=== PATIENT | male | born 1940 | race African-American/Black ===

== ENCOUNTER 2016-11-30 22:55 | Inpatient (IN) | payer OTHER ==
[~2016-11-30] VITALS: Ht 180.3 cm; Wt 90.7 kg
[~2016-11-30 22:55] MED LIST: ACETAMINOPHEN500 MG PO; AMBIEN5 MG PO; ASPIR-LOW81 MG PO; COLACE100 MG ORAL; COZAAR100 MG PO; EPLERENONE25 MG PO; HUMULIN 70100 UNIT/1 SUBQ; HYDRALAZINE HCL25 M1 ORAL; IMDUR60 MG ORAL; LASIX40 MG PO; LIPITOR80 MG PO; METOPROLOL TAR100 MG ORAL; NOVOLIN 70100 UNIT/1 SUBQ; PLAVIX75 MG PO; TENORMIN25 MG PO; TESSALON PERLE100 M2 ORAL; VICODIN 5-5001 EACH PO
[2016-11-30 23:15] VITALS: BP 116/93
[2016-11-30] MEDS ORDERED: Naloxone 1mg/ml 2ml IVP ONE (23:15)
--- NOTE | 2016-11-30 23:43 | Emergency Room Report ---
History of Present Illness General Chief Complaint: Altered Level of Consciousness Source: Medical Record Present Illness HPI 75 YO M sent from SNF for "more altered than usual." Paperwork/EMR: - dementia, CKD Stage 3, urinary retention, left foot gangrene/osteo s/p amputation, left upper DVT, CHF, cardiomyopathy - Patient unable to AC because of bleeding left foot, anemia CXR done today was normal Abx ray showed normal bowel gas pattern, non distended loops of bowel Recent UA showed 1+ LE, few bacteria BNP was 2939, serum Cr 1.93 Patient is full code Allergies: Coded Allergies: CODEINE (Verified Allergy, Unknown, 10/25/12) SPIRONOLACTONE (Verified Allergy, Unknown, 11/30/16) Patient History Past Medical History: see triage record, old chart reviewed Past Surgical History: unable to obtain Pertinent Family History: unable to obtain Social History: Reports: smoking Reviewed Nursing Documentation: PMH: Agreed, PSxH: Agreed Nursing Documentation-PMH Past Medical History: No History, Except For Hx Cardiac Problems: Yes - HIGH CHOLESTEROL Hx Hypertension: Yes Hx Diabetes: Yes Hx Cancer: No Hx Gastrointestinal Problems: No Hx Neurological Problems: No Hx Cerebrovascular Accident: No Hx Headaches: Yes Review of Systems All Other Systems: limited - AMS Physical Exam Vital Signs Date Time Temp Pulse Resp B/P Pulse Ox O2 Delivery O2 Flow Rate FiO2 11/30/16 22:59 90.5 82 18 112/68 99 Room Air Sp02 EP Interpretation: reviewed, abnormal General Appearance: normal inspection, well appearing, no apparent distress, lethargic Head: normocephalic, atraumatic Eyes: bilateral eye other - pinpoint pupils bilaterall ENT: normal ENT inspection, hearing grossly normal, normal pharynx, no angioedema, TMs + canals normal, uvula midline Neck: normal inspection, full range of motion, supple, thyroid normal, no meningismus, no bony tend Respiratory: normal inspection, lungs clear, normal breath sounds, no respiratory distress, no retraction, no accessory muscle use, no wheezing, other - mid sternal scar Cardiovascular #1: regular rate, rhythm, no edema Gastrointestinal: normal inspection, normal bowel sounds, non tender, soft, no guarding, no hernia Genitourinary: no CVA tenderness Musculoskeletal: normal inspection, back normal, normal range of motion, Trisha' s Sign negative, other - S/p amputation of toes of left foot; wrapped with dressing. No appreciable warmth or erythema. Neurologic: normal inspection, alert, oriented x3, responsive, pollution control chemist III-XII nml as tested, motor strength/tone normal, speech normal Psychiatric: normal inspection, judgement/insight normal, mood/affect normal Skin: normal inspection, normal color, no rash Procedures Critical Care Time Critical Care Time CC time 35 minutes Care for a 75YOM with known dementia with AMS. Normally A&Ox1. VS significant for rectal temp 90F however patient not cold to touch. 90F using multiple rectal thermometers in ED DDx includes CVA, ACS, infection, metabolic abnormality, toxic ingestion, polysubstance abuse Patient is disoriented, no obvious sign of trauma. Comprehensive physical exam completed, atraumatic. Unreliable history from patient. Labs include toxicology and chem panel, CT head, EKG 12 lead and constant cardiac rhythm strip monitoring, IV established. Airway adequately maintained by patient upon arrival. EKG reveals atrial paced, ventricular sensed rhythm Physician spent 35 minutes of direct critical care time monitoring patient's respiratory, cardiac and neurological status, reassessment, review of imaging, labs and discussion with attending hospitalist. Does not include procedures Medical Decision Making Medicare Attestation I Shell Leigh MD hereby attest that the medical record entry for date of service, 09/11/16 accurately reflects signatures/notations that I made in my capacity as MD when I treated/diagnosed the above listed Medicare beneficiary. I attest that this information is true, accurate and complete to the best of my knowledge. I understand that any falsification, omission, or concealment of material fact may subject me to administrative, civil, or criminal liability. This patient warrants hospital admission for extreme of age and has a condition that cannot be treated as outpatient. Diagnostic Impression: Primary Impression: Altered level of consciousness Additional Impressions: Hypothermia Qualified Codes: T68.XXXA - Hypothermia, initial encounter Lactic acid acidosis ER Course 75 YOM with acute AMS. VS notable for hypothermia. Otherwise stable. Airway patent. Elevated lactate. H&H stable. No leuks. Elevated serumCr, known CKD CT brain no acute abnormality Spoke to Dr Rainey at [facility] who didnt feel patient comfortable for transfer States patient on Vanc/Cefepime/Flagyl, which were continued IV here Blood Cx pending Patient has PICC line I placed right EJ for labs, access Endorsed to Dr Gallardo at 148am for tele amdission EKG Diagnostic Results Rate: other - Atrial sensed ventricular paced rhythm, PVCs ST Segments: no acute changes ASA given to the pt in ED: No Rhythm Strip Diag. Results EP Interpretation: yes Rate: 82 Rhythm: no PVC's, other - PVCs Chest X-Ray Diagnostic Results EP Interpretation: Yes Findings: no consolidation, no effusion, no pneumothorax, no acute cardiopulmonary disease, other - pacemarker Number of Views: 1 Last Vital Signs Date Time Temp Pulse Resp B/P Pulse Ox O2 Delivery O2 Flow Rate FiO2 11/30/16 22:59 90.5 82 18 112/68 99 Room Air Status: improved Disposition: ADMITTED INPATIENT Condition: Critical SHELL LEIGH M.D. Nov 30, 2016 23:43
[2016-12-01] VITALS (60 sets, daily range): BP systolic 60–113; BP diastolic 17–89
[2016-12-01 01:07] LABS: MEAN CORPUSCULAR HEMOGLOBIN 31.1 PG (27.0-31.0); MEAN CORPUSCULAR HGB CONC 29.9 G/DL (32.0-36.0); MEAN CORPUSCULAR VOLUME 104 FL (80-99); MEAN PLATELET VOLUME 12.3 FL (6.5-10.1); PLATELET COUNT 118 K/UL (150-450); RED BLOOD COUNT 3.56 M/UL (4.70-6.10)
[2016-12-01 01:22] LABS: TROPONIN I < 0.30 ng/mL (<=0.30)
[2016-12-01 01:26] LABS: ALANINE AMINOTRANSFERASE 7 U/L (3-41); ALBUMIN/GLOBULIN RATIO 0.5 (1.0-2.7); ANION GAP 18 (5-15); ASPARTATE AMINO TRANSFERASE 24 U/L (5-40); CALCIUM 9.2 mg/dL (8.6-10.2); CARBON DIOXIDE 28 mEQ/L (20-30); CHLORIDE 97 mEQ/L (98-107); CREATININE 2.8 mg/dL (0.7-1.2); HEMOLYSIS 28; SODIUM 143 mEQ/L (135-145); TOTAL PROTEIN 7.1 g/dL (6.6-8.7)
[2016-12-01] MEDS ORDERED: Zosyn 3.375gm inj ONE (01:28)
[2016-12-01 01:29] LABS: REFLEX LACTIC ACID YES OR NO YES
[2016-12-01] MEDS ORDERED: Piperacillin/Tazobactam 3.375 GM in NS 110 ML IVPB ONE (01:30)
[2016-12-01] MEDS ORDERED: Cefepime HCl 2 GM in D5W 110 ML IVPB ONE (01:30)
[2016-12-01] MEDS ORDERED: metroNIDAZOLE 500mg 100 ML IVPB ONE (01:30)
[2016-12-01] MEDS ORDERED: Vancomycin 1 GM in D5W 275 ML IVPB ONE (01:30)
[2016-12-01] MEDS ORDERED: Cefepime 2gm ONE (01:31)
[2016-12-01 01:35] LABS: CKMB 10.7 ng/mL (< 6.7)
[2016-12-01] MEDS ORDERED: LR 1000ml 1,000 ML IV STA (01:40)
[2016-12-01 02:26] LABS: APPEARANCE,URINE SLIGHTLY CLOUDY; KETONES,URINE 1+ (NEGATIVE); PROTEIN,URINE 3+ (NEGATIVE)
[2016-12-01 02:27] LABS: LEUKOCYTE ESTERASE ,URINE 2+ (NEGATIVE); NITRITE,URINE NEGATIVE (NEGATIVE); RBC,URINE 15-20 /HPF (0 - 0); SQUAMOUS EPITHELIAL CELL,UR MANY /LPF (NONE/OCC); UROBILINOGEN,URINE NORMAL MG/DL (0.0-1.0)
[2016-12-01 02:28] LABS: BACTERIA,URINE FEW /HPF; YEAST,URINE MANY /HPF
[2016-12-01] MEDS ORDERED: Vancomycin 1gm inj IVPB ONE (03:56)
[2016-12-01] MEDS ORDERED: Levophed 4mg/4mL Inj IV ONE (09:39)
[2016-12-01] MEDS ORDERED: NEPHROVITE1 TAB ORAL (10:57)
[2016-12-01] MEDS ORDERED: NORCO 5-325 TA1 EAC1 ORAL (10:57)
[2016-12-01] MEDS ORDERED: FERROUS SULFAT325 MG ORAL (10:57)
[2016-12-01] MEDS ORDERED: PANTOPRAZOLE SO40 MG ORAL (10:57)
[2016-12-01] MEDS ORDERED: POTASSIUM 25 M25 ME1 PO (10:57)
[2016-12-01] MEDS ORDERED: VITAMIN B-121000 MC1 PO (10:57)
--- NOTE | 2016-12-01 10:57 | Diagnostic Imaging Report ---
Indication: Chest Technique: One view of the chest Comparison: 11/26/2013 Findings: Interim placement of left chest 3-lead pacemaker AICD. Interim cardiac valve replacement surgery. The heart is mildly enlarged. The lungs and pleural spaces are clear. There is a right arm PICC now present Impression: No acute process graph mild cardiomegaly Other findings as noted
[2016-12-01] MEDS ORDERED: TYLENOL650 MG/20. ORAL (11:01)
[2016-12-01] MEDS ORDERED: TAMSULOSIN HCL0.4 MG ORAL (11:01)
[2016-12-01] MEDS ORDERED: ZYPREXA2.5 MG ORAL (11:01)
[2016-12-01] MEDS ORDERED: TORSEMIDE100 MG PO (11:01)
[2016-12-01] MEDS ORDERED: ALLOPURINOL300 M1 ORAL (11:01)
--- NOTE | 2016-12-01 11:06 | Diagnostic Imaging Report ---
Indication: Altered mental status Technique: spiral acquisitions obtained through the brain. Angled axial and coronal 5 x 5 mm slices were reconstructed. No IV contrast utilized. Radiation dose was minimized using automated exposure control Total dose length product 1552 mGycm. CTDIvol(s) 70 mGy Comparison: none FINDINGS: No acute hemorrhage or edema. No mass effect or midline shift. There is age-related enlargement of the ventricles and extra axial CSF spaces. There is periventricular deep white matter ischemic change. Normal tavera-white differentiation. Visualized orbits are unremarkable. Visualized sinuses are unremarkable. Intact calvarium. There is an old right parietal deep white matter infarct. IMPRESSION: Chronic and age-related changes. 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 The CT scanner at [facility] is accredited by the [employer] and the scans are performed using protocols designed to limit radiation exposure to as low as reasonably achievable to attain images of sufficient resolution adequate for diagnostic evaluation
[2016-12-01] MEDS: D5NS 1,000 ML IV SCH ×2 (13:30→23:37)
--- NOTE | 2016-12-01 14:20 | Infectious Diseases Prog Note ---
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 3) pmh noted, arf 4) allergies - codeine and spironolactone P) 1) vancomycin and meropenem 2) check cultures, labs and f/u chest x-ray 3) podiatry evaluation of left stump wound for possible debridement 4) d/w Dr. Medellin 5) thank you Subjective Allergies: Coded Allergies: CODEINE (Verified Allergy, Unknown, 10/25/12) SPIRONOLACTONE (Verified Allergy, Unknown, 11/30/16) Objective Vital Signs Last 24 Hour Vital Signs Date Time Temp Pulse Resp B/P Pulse Ox O2 Delivery O2 Flow Rate FiO2 12/01/16 13:31 100 Nasal Cannula 2.0 28 12/01/16 13:30 Nasal Cannula 2.0 28 12/01/16 12:30 97 13 100/40 98 Room Air 12/01/16 12:15 96 13 99/34 98 Room Air 12/01/16 12:00 98 12/01/16 12:00 98.6 99 12 99/38 98 Room Air 12/01/16 11:45 99 13 100/44 98 Room Air 12/01/16 11:30 99 13 100/44 98 Room Air 12/01/16 11:15 99 14 94/47 98 Room Air 12/01/16 11:00 101 15 100/37 98 Room Air 12/01/16 10:50 98.4 100 16 105/38 99 Room Air 12/01/16 10:42 98.4 100 16 105/38 100 Room Air 12/01/16 10:30 98 12 94/43 99 Room Air 12/01/16 09:44 82/40 12/01/16 09:30 94 13 82/40 99 Room Air 12/01/16 08:28 96.3 82 12 94/32 100 Room Air 12/01/16 07:14 93.8 89 15 105/77 100 Room Air 12/01/16 05:15 91.4 75 17 95/34 98 Room Air 12/01/16 03:15 90.1 72 15 111/39 100 Room Air 12/01/16 01:15 91.1 77 22 107/52 100 Room Air 11/30/16 23:15 90.5 81 17 116/93 100 Room Air 11/30/16 22:59 90.5 82 18 112/68 99 Room Air Height (Feet): 5 Height (Inches): 11.00 Weight (Pounds): 200 Laboratory Tests Test 12/01/16 00:50 12/01/16 01:58 12/01/16 03:36 White Blood Count 6.0 K/UL (4.8-10.8) Red Blood Count 3.56 M/UL (4.70-6.10) L Hemoglobin 11.0 G/DL (14.2-18.0) L Hematocrit 36.9 % (42.0-52.0) L Mean Corpuscular Volume 104 FL (80-99) H Mean Corpuscular Hemoglobin 31.1 PG (27.0-31.0) H Mean Corpuscular Hemoglobin Concent 29.9 G/DL (32.0-36.0) L Red Cell Distribution Width 20.0 % (11.6-14.8) H Platelet Count 118 K/UL (150-450) L Mean Platelet Volume 12.3 FL (6.5-10.1) H Neutrophils (%) (Auto) % (45.0-75.0) Lymphocytes (%) (Auto) % (20.0-45.0) Monocytes (%) (Auto) % (1.0-10.0) Eosinophils (%) (Auto) % (0.0-3.0) Basophils (%) (Auto) % (0.0-2.0) Sodium Level 143 mEQ/L (135-145) Potassium Level 4.0 mEQ/L (3.4-4.9) Chloride Level 97 mEQ/L (98-107) L Carbon Dioxide Level 28 mEQ/L (20-30) Anion Gap 18 (5-15) H Blood Urea Nitrogen 47 mg/dL (7-23) H Creatinine 2.8 mg/dL (0.7-1.2) H Estimat Glomerular Filtration Rate mL/min (>60) Glucose Level 216 mg/dL (74-106) H Lactic Acid Level 2.30 mmol/L (0.66-2.22) H 1.90 mmol/L (0.66-2.22) Calcium Level 9.2 mg/dL (8.6-10.2) Total Bilirubin 0.7 mg/dL (0.0-1.2) Aspartate Amino Transf (AST/SGOT) 24 U/L (5-40) Alanine Aminotransferase (ALT/SGPT) 7 U/L (3-41) Alkaline Phosphatase 105 U/L (40-129) Total Creatine Kinase 57 U/L (38-174) Creatine Kinase MB 10.7 ng/mL (< 6.7) H Creatine Kinase MB Relative Index 18.7 Troponin I < 0.30 ng/mL (<=0.30) Total Protein 7.1 g/dL (6.6-8.7) Albumin 2.5 g/dL (3.5-5.2) L Globulin 4.6 g/dL Albumin/Globulin Ratio 0.5 (1.0-2.7) L Urine Color Yellow Urine Appearance Slightly cloudy Urine pH 5.0 (4.5-8.0) Urine Specific [place] 1.015 (1.005-1.035) Urine Protein 3+ (NEGATIVE) H Urine Glucose (UA) Negative (NEGATIVE) Urine Ketones 1+ (NEGATIVE) H Urine Occult Blood 4+ (NEGATIVE) H Urine Nitrite Negative (NEGATIVE) Urine Bilirubin Negative (NEGATIVE) Urine Urobilinogen Normal MG/DL (0.0-1.0) Urine Leukocyte Esterase 2+ (NEGATIVE) H Urine RBC 15-20 /HPF (0 - 0) H Urine WBC 5-10 /HPF (0 - 0) H Urine Squamous Epithelial Cells Many /LPF (NONE/OCC) H Urine Bacteria Few /HPF (NONE) Urine Yeast Many /HPF (NONE) H Current Medications Medications (Trade) Dose Ordered Sig/Luis Route PRN Reason Start Time Stop Time Status Last Admin Dose Admin Dextrose/Sodium Chloride (D5ns) 1,000 ml @ 100 mls/hr Q10H IV 12/01/16 13:30 12/31/16 13:29 Norepinephrine Bitartrate 4 mg/ Dextrose 250 ml @ 0 mls/hr Q24H IV 12/01/16 09:15 12/31/16 09:14 12/01/16 09:44 ALBERTO CUEVAS Dec 01, 2016 14:20
--- NOTE | 2016-12-01 15:03 | History & Physical ---
History and Physical History & Physicial dict called ID, renal, cardiology, podiatry called , SHELL BLAKELY Dec 01, 2016 15:03
[2016-12-01] MEDS ORDERED: Heparin 5000 units/ml inj IV ONE (16:00)
[2016-12-01] MEDS ORDERED: Heparin 25,000u/D5W 500ml 500 ML IV SCH (16:00)
[2016-12-01] MEDS: NovoLOG Insulin Flexpen SUBQ SCH (18:07)
--- NOTE | 2016-12-01 18:39 | Podiatric Progress Note ---
Assessment/Plan Patient Problems: Subjective Allergies: Coded Allergies: CODEINE (Verified Allergy, Unknown, 10/25/12) SPIRONOLACTONE (Verified Allergy, Unknown, 11/30/16) Berny Medina DPM Dec 01, 2016 18:39
--- NOTE | 2016-12-01 18:41 | Consultation ---
Consult Note Consult Note CONSULTING SPECIALTY: PODIATRY CONSULTING PHYSICIAN: Berny Medina DPM covering for Adan Avila DPM REASON FOR CONSULT: Left foot wound DATE OF CONSULTATION: 12/01/16 HISTORY OF PRESENT ILLNESS: Patient is unable to communicate effectively. However, patient is known to podiatry service. He has a history of left foot surgery with open transmetatarsal amputation. A wound vac was being utilized for wound management as well as IV antibiotics. He was admitted to the hospital for altered mental status PAST MEDICAL HISTORY: Peripheral vascular disease, T2DM SURGICAL HISTORY: Left foot open transmetatarsal amputation SOCIAL AND FAMILY HISTORY: Unable to obtain Allergies: Coded Allergies: CODEINE (Verified Allergy, Unknown, 10/25/12) SPIRONOLACTONE (Verified Allergy, Unknown, 11/30/16) Objective Objective Exam Last 24 Hour Vital Signs Date Time Temp Pulse Resp B/P Pulse Ox O2 Delivery O2 Flow Rate FiO2 12/01/16 16:36 80/63 12/01/16 15:00 95 18 90/40 100 Room Air 12/01/16 14:45 94 17 91/41 100 Room Air 12/01/16 14:30 96 17 90/40 100 Room Air 12/01/16 14:15 98.5 96 17 92/40 100 Room Air 12/01/16 14:00 96 17 90/40 100 Room Air 12/01/16 13:45 96 17 101/40 100 Room Air 12/01/16 13:31 100 Nasal Cannula 2.0 12/01/16 13:30 95 15 94/43 98 Room Air 12/01/16 13:30 Nasal Cannula 2.0 12/01/16 13:15 96 12 103/42 98 Room Air 12/01/16 13:00 97 13 100/40 98 Room Air 12/01/16 12:45 97 13 102/39 98 Room Air 12/01/16 12:30 97 13 100/40 98 Room Air 12/01/16 12:15 96 13 99/34 98 Room Air 12/01/16 12:00 98 12/01/16 12:00 98.6 99 12 99/38 98 Room Air 12/01/16 11:45 99 13 100/44 98 Room Air 12/01/16 11:30 99 13 100/44 98 Room Air 12/01/16 11:15 99 14 94/47 98 Room Air 12/01/16 11:00 101 15 100/37 98 Room Air 12/01/16 10:50 98.4 100 16 105/38 99 Room Air 12/01/16 10:42 98.4 100 16 105/38 100 Room Air 12/01/16 10:30 98 12 94/43 99 Room Air 12/01/16 09:44 82/40 12/01/16 09:30 94 13 82/40 99 Room Air 12/01/16 08:28 96.3 82 12 94/32 100 Room Air 12/01/16 07:14 93.8 89 15 105/77 100 Room Air 12/01/16 05:15 91.4 75 17 95/34 98 Room Air 12/01/16 03:15 90.1 72 15 111/39 100 Room Air 12/01/16 01:15 91.1 77 22 107/52 100 Room Air 11/30/16 23:15 90.5 81 17 116/93 100 Room Air 11/30/16 22:59 90.5 82 18 112/68 99 Room Air Laboratory Tests Test 12/01/16 00:50 12/01/16 01:58 12/01/16 03:36 12/01/16 16:30 White Blood Count 6.0 K/UL (4.8-10.8) Red Blood Count 3.56 M/UL (4.70-6.10) L Hemoglobin 11.0 G/DL (14.2-18.0) L Hematocrit 36.9 % (42.0-52.0) L Mean Corpuscular Volume 104 FL (80-99) H Mean Corpuscular Hemoglobin 31.1 PG (27.0-31.0) H Mean Corpuscular Hemoglobin Concent 29.9 G/DL (32.0-36.0) L Red Cell Distribution Width 20.0 % (11.6-14.8) H Platelet Count 118 K/UL (150-450) L Mean Platelet Volume 12.3 FL (6.5-10.1) H Neutrophils (%) (Auto) % (45.0-75.0) Lymphocytes (%) (Auto) % (20.0-45.0) Monocytes (%) (Auto) % (1.0-10.0) Eosinophils (%) (Auto) % (0.0-3.0) Basophils (%) (Auto) % (0.0-2.0) Sodium Level 143 mEQ/L (135-145) Potassium Level 4.0 mEQ/L (3.4-4.9) Chloride Level 97 mEQ/L (98-107) L Carbon Dioxide Level 28 mEQ/L (20-30) Anion Gap 18 (5-15) H Blood Urea Nitrogen 47 mg/dL (7-23) H Creatinine 2.8 mg/dL (0.7-1.2) H Estimat Glomerular Filtration Rate mL/min (>60) Glucose Level 216 mg/dL (74-106) H Lactic Acid Level 2.30 mmol/L (0.66-2.22) H 1.90 mmol/L (0.66-2.22) Calcium Level 9.2 mg/dL (8.6-10.2) Total Bilirubin 0.7 mg/dL (0.0-1.2) Aspartate Amino Transf (AST/SGOT) 24 U/L (5-40) Alanine Aminotransferase (ALT/SGPT) 7 U/L (3-41) Alkaline Phosphatase 105 U/L (40-129) Total Creatine Kinase 57 U/L (38-174) Creatine Kinase MB 10.7 ng/mL (< 6.7) H Creatine Kinase MB Relative Index 18.7 Troponin I < 0.30 ng/mL (<=0.30) Total Protein 7.1 g/dL (6.6-8.7) Albumin 2.5 g/dL (3.5-5.2) L Globulin 4.6 g/dL Albumin/Globulin Ratio 0.5 (1.0-2.7) L Urine Color Yellow Urine Appearance Slightly cloudy Urine pH 5.0 (4.5-8.0) Urine Specific [place] 1.015 (1.005-1.035) Urine Protein 3+ (NEGATIVE) H Urine Glucose (UA) Negative (NEGATIVE) Urine Ketones 1+ (NEGATIVE) H Urine Occult Blood 4+ (NEGATIVE) H Urine Nitrite Negative (NEGATIVE) Urine Bilirubin Negative (NEGATIVE) Urine Urobilinogen Normal MG/DL (0.0-1.0) Urine Leukocyte Esterase 2+ (NEGATIVE) H Urine RBC 15-20 /HPF (0 - 0) H Urine WBC 5-10 /HPF (0 - 0) H Urine Squamous Epithelial Cells Many /LPF (NONE/OCC) H Urine Bacteria Few /HPF (NONE) Urine Yeast Many /HPF (NONE) H Activated Partial Thromboplast Time 36 SEC (23-33) H Exam Narrative Left foot with open transmetatarsal amputation. Metatarsals 1-5 are visible. 90 % fibrotic tissue and 10% granular tissue. Mild serous drainage at the at the planar aspect. No purulence or malodor noted. Pulses non palpable. Right foot with dry scaly skin - Assessment/Plan Assessment: - Left foot with open transmetatarsal amputation and exposed metatarsals 1-5. Patient is afebrile and without leukocytosis. No purulence or malodor noted. No surrounding erythema or edema. Wound base is fibrotic. - Peripheral vascular disease - T2DM Plan: - Took wound cultures - Start daily dressing changes with Santyl - Will consider surgical intervention once patient is stabilized and no longer in the ICU Berny Medina DPM Dec 01, 2016 18:40
[2016-12-01 20:40] LABS: CREATININE, RANDOM URINE 88.4 mg/dL
--- NOTE | 2016-12-01 21:38 | History and Physical Report ---
DATE OF ADMISSION: 12/01/2016 CHIEF COMPLAINT: Altered mental status. HISTORY OF PRESENT ILLNESS: The patient provided no history. The records from the intermediate visited by the nurse practitioner yesterday are reviewed. He was transferred here because of altered mental status and was found to be hypothermic and hypotensive. He was started on intravenous fluids, antibiotics, and warming measures and admitted to intensive care unit. He was not stable for transfer to [facility], his contracted hospital. PAST MEDICAL HISTORY: This 75-year-old man has coronary disease with ischemic cardiomyopathy. He has a biventricular-implanted cardiac defibrillator. He has had mitral valve repair. He had a left ventricular thrombus, which apparently has resolved. There is diabetes type 2, chronic kidney disease, and peripheral artery disease with left foot gangrene. He had a partial amputation, but is having osteomyelitis and he is on antibiotics. He had a left tibial artery angioplasty in June 2016. He recently was hospitalized due to gangrene of the foot and had extensive clot identified in the left arm including the left subclavian axillary and basilic veins. Anticoagulation was initiated, but he developed bleeding from the foot and it was discontinued. He required blood transfusion. There is a history of delirium, left parietal stroke with agitated encephalopathy, deconditioning, acute on chronic systolic and diastolic congestive heart failure, tricuspid regurgitation, stage 3 chronic kidney disease, anemia of chronic disease, iron deficiency anemia, thrombocytopenia, diabetic peripheral angiopathy with gangrene, diabetic chronic kidney disease, sacral decubitus ulcer, which has healed, and left buttock and right heel ulcers, which are healed. He had a recent urinary tract infection. He has vitamin B12 deficiency, hyperuricemia, and is colonized with VRE. CODE STATUS: Full code. FAMILY CONTACT: There are three daughters including, Deidre, Yolande, and Suyapa. Deidre's home number is [phone] and mobile [phone]. Yolande's home number is [phone] and mobile [phone]. Suyapa's home number [phone] and mobile [phone]. I have called several of these numbers and I have not reached anyone. I left a message. MEDICATIONS: Reviewed and reconciled. He is unable to take any oral medications at this time. ALLERGIES: Codeine and spironolactone. PHYSICAL EXAMINATION: GENERAL: The patient's blood pressure is 83/50. He is on vasopressors and intravenous fluids. He is poorly responsive. HEENT: The head is normocephalic. The mouth has no lesions. There appear to be dental implants. CHEST: He has few rhonchi. CARDIAC: Rhythm is regular. Pacemaker is in place. ABDOMEN: Soft and nontender. Liver and spleen are not enlarged. EXTREMITIES: No clubbing or cyanosis. There is edema of the left arm. The left foot has a dressing in place. Photographs were reviewed. IMPRESSION: 1. Sepsis with septic shock and hypothermia. 2. Osteomyelitis, left foot, likely etiology of sepsis. 3. Encephalopathy. 4. Congestive heart failure, acute on chronic systolic and diastolic. 5. Left subclavian, axillary, and basilic vein thrombosis. 6. History of cardiac thrombosis, resolved. 7. Osteomyelitis and gangrene of the left foot, status post transmetatarsal amputation 11/13/2016. 8. Peripheral artery disease status post angioplasty. 9. Coronary heart disease with ejection fraction 13%. 10. Status post biventricular implanted defibrillator. 11. Chronic kidney disease stage 4. 12. Anemia. 13. Thrombocytopenia. 14. 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 15. B12 deficiency. 16. Hyperuricemia. PLAN: The patient has been cultured and placed on antibiotics, fluids, and vasopressors. Infectious Disease consultation has been requested. I have attempted to contact the family regarding his poor prognosis. Nathaniel Medellin M.D. DR: DERICK JOB#: [id number] CC: Sascha Khan M.D.
[2016-12-01] MEDS ORDERED: Vancomycin 750mg/D5W 275ml IVPB SCH ×2 (22:00)
[2016-12-02] VITALS (57 sets, daily range): BP systolic 56–156; BP diastolic 12–100
[2016-12-02] MEDS: NovoLOG Insulin Flexpen SUBQ SCH ×4 (00:09→17:40)
[2016-12-02] MEDS ORDERED: Heparin 25,000u/D5W 500ml 500 ML IV SCH ×3 (02:45→21:00)
--- NOTE | 2016-12-02 02:59 | Consultation ---
DATE OF CONSULTATION: 12/01/2016 CARDIOLOGY CONSULTATION CONSULTING PHYSICIAN: Jatinder Fu M.D. REQUESTING PHYSICIAN: Nathaniel Medellin M.D. REASON FOR CONSULTATION: Sepsis in the setting of severe cardiomyopathy with cardiac defibrillator. HISTORY OF PRESENT ILLNESS: This is a 75-year-old male, who resides in a half-way facility and was transferred to the emergency room because of altered mentation. On arrival, he was hypotensive and hypothermic. He was pancultured, started on intravenous fluids, and warming measures followed by antibiotics. He was admitted to the intensive care unit. I have been asked to assist with his cardiovascular care in view of his presentation, hemodynamic instability, and underlying cardiomyopathy with cardiac defibrillator. The patient is unable to give any history. Records are reviewed. PAST MEDICAL HISTORY: 1. Coronary artery disease with ischemic cardiomyopathy. 2. Biventricular cardiac defibrillator. 3. History of left ventricular thrombus, presently not on anticoagulation and has since resolved. 4. History of mitral valve repair. 5. Type 2 diabetes mellitus. 6. Chronic kidney disease due to nephropathy. 7. Peripheral artery disease with left foot gangrene and osteomyelitis with partial amputation. 8. Status post left tibial artery angioplasty. 9. Cerebrovascular disease with prior left parietal cerebrovascular accident. 10. Severe systolic dysfunction with ejection fraction less than 20%. 11. Iron-deficiency anemia. 12. Thrombocytopenia. 13. History of B12 deficiency. 14. Hyperuricemia. 15. 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 ALLERGIES: Codeine and Aldactone. MEDICATIONS: Presently reviewed and reconciled. FAMILY HISTORY: Not known. SOCIAL HISTORY: Presently not obtainable. REVIEW OF SYSTEMS: Otherwise not obtainable from patient. Pertinent data from record reviewed and outlined in detail above. PHYSICAL EXAMINATION: VITAL SIGNS: Blood pressure 83/50. He is on pressors at this time. Heart rate 70 and respiratory rate 20. HEENT: Temporal wasting. Pale conjunctivae. Oropharynx clear. NECK: Supple. Jugular venous pressure elevated. LUNGS: With few rhonchi. CARDIAC: Regular rhythm rate. Normal S1, paradoxically split S2. No murmur appreciated. ABDOMEN: Soft. EXTREMITIES: Reveal left upper extremity edema. There is a dressing over the left foot. Wound is noted in the chart by photographs. LABORATORY DATA: White count 6 and hemoglobin 11. Potassium 4, BUN 47, creatinine 2.8. Lactic acid 2.3. Troponin negative. Albumin 2.5. Urinalysis with 15 to 20 red cells and 5 to 10 white cells. IMPRESSION: 1. Shock. 2. Sepsis. 3. Hypothermia. 4. Severe cardiomyopathy. 5. Cardiac defibrillator. 6. Ischemic heart disease. 7. Acute on chronic systolic congestive heart failure. 8. 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 9. Remains critical with guarded prognosis. 10. History of mitral valve repair with increased risk for endocarditis. PLAN: 1. Warming measures. 2. Intensive care unit monitoring. 3. Broad-spectrum antibiotics. 4. Follow up culture results. If bacteremic, may consider transesophageal echocardiogram or empiric therapy for endocarditis. Transthoracic echocardiogram in the interim. Taper pressors as able. 5. Cautious hydration due to severe cardiomyopathy. 6. Cautious anticoagulation. 7. Monitoring for bleeding in view of history of previous. 8. Monitor hemoglobin. Jatinder Fu M.D. DR: DEXTER JOB#: [id number] CC:
--- NOTE | 2016-12-02 03:18 | Consultation ---
DATE OF CONSULTATION: NEPHROLOGY CONSULTATION CONSULTING PHYSICIAN: Cliff Oscar M.D. REASON FOR CONSULTATION: Renal failure and septic shock. HISTORY OF PRESENT ILLNESS: The patient is unable to provide any history and only brief information is available. He presents with hypotension and altered mental status. He is on maximum dose of Levophed in the ICU. According to records, he has chronic kidney disease stage 3, dementia, urinary retention, left foot gangrene, status post transmetatarsal amputation. He has also had DVT, CHF, and cardiomyopathy. ALLERGIES: Codeine and spironolactone. MEDICATIONS: Prior to admission include cefepime, Plavix, vitamin B12, ferrous sulfate, furosemide, Humalog sliding scale, isosorbide, Lantus, metronidazole, Nephro-Rashawn, nitroglycerin, [place], Tylenol, polyethylene glycol, potassium, senna, tamsulosin, torsemide, vancomycin, and Zyprexa. Further information not available. PHYSICAL EXAMINATION: GENERAL: The patient was seen in the ICU. VITAL SIGNS: Blood pressure is 80/63, pulse 99, respirations 18, and temperature recorded 98.5 degrees axillary. HEAD, EYES, EARS, NOSE, AND THROAT: Sclerae nonicteric. Eyes are closed during most of the exam. Oral mucosa is slightly dry. NECK: No adenopathy. LUNGS: Clear. HEART: Regular rhythm. No murmur. ABDOMEN: Soft. No organomegaly or masses. EXTREMITIES: No edema. 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 NEUROLOGIC: The patient opens his eyes intermittently and looks above. He does not follow commands. He is nonverbal. There is a paucity of movement. PERTINENT LABORATORY AND DIAGNOSTIC DATA: Review of pertinent labs show white count of 6000 and hemoglobin is 11. Sodium 143, potassium 4, chloride 97, CO2 of 28, BUN 47, creatinine 2.8, and glucose 216. Lactic acid 2.30 and 1.90. CK 57. Troponin less than 0.30. Albumin 2.5. Urinalysis shows 5 to 10 white cells per high-power field, 3+ proteinuria. Chest x-ray negative. CT brain is done, reported, shows chronic age-related changes with right parietal deep white matter infarct. IMPRESSION: 1. Septic shock. 2. Hypovolemic shock. 3. Chronic kidney disease stage 3. 4. Acute kidney injury, may be due to septic shock. He is at this time aneuric. PLAN: The patient be given fluid boluses, pressors, broad-spectrum antibiotics. His condition is gravely ill. ICU care. Orders have been reviewed in detail. Cliff Neal M.D. DR: Jorge Alberto JOB#: [id number] CC:
[2016-12-02 07:20] LABS: BASOPHILS % (AUTO) 0.4 % (0.0-2.0); EOSINOPHILS % (AUTO) 0.1 % (0.0-3.0); LYMPHOCYTES % (AUTO) 7.9 % (20.0-45.0); MEAN CORPUSCULAR HEMOGLOBIN 31.1 PG (27.0-31.0); MEAN CORPUSCULAR HGB CONC 29.6 G/DL (32.0-36.0); MEAN CORPUSCULAR VOLUME 105 FL (80-99); MEAN PLATELET VOLUME 11.4 FL (6.5-10.1); MONOCYTES % (AUTO) 8.9 % (1.0-10.0); NEUTROPHILS % (AUTO) 82.8 % (45.0-75.0); PLATELET COUNT 133 K/UL (150-450); RED BLOOD COUNT 3.43 M/UL (4.70-6.10); RED CELL DISTRIBUTION WIDTH 19.9 % (11.6-14.8)
[2016-12-02 07:43] LABS: HEMOGLOBIN A1C 6.1 % (< 6.0)
--- NOTE | 2016-12-02 07:48 | Progress Note ---
DATE: 12/02/2016 CARDIOLOGY PROGRESS NOTE: SUBJECTIVE: The patient's condition remains critical. Prognosis is guarded. He is in the intensive care unit. He is withdrawn lethargic, but arousable. He remains on pressor support. OBJECTIVE: VITAL SIGNS: Blood pressure marginal at 90/50, heart rate 90, respiratory rate 18 to 20. The patient is afebrile. HEENT: Normocephalic and atraumatic. Conjunctivae are pink. Oropharynx clear. NECK: Supple. Jugular venous pressure elevated. LUNGS: With diminished breath sounds. Basilar rales. CARDIAC: Regular rhythm rate. Normal S1, S2. A 1/6 systolic apical murmur. ABDOMEN: Soft. EXTREMITIES: With dependent edema. Left foot has amputation site with dressing in place. LABORATORY DATA: Laboratories are pending. IMPRESSION: 1. Cardiogenic shock. 2. Septic shock. 3. Left lower extremity gangrene infection. 4. Acute on chronic renal failure. 5. Severe ischemic cardiomyopathy. 6. Cardiac defibrillator. 7. Acute on chronic systolic congestive heart failure. 8. Anemia. 9. Severe protein-calorie malnutrition. 10. History of mitral valve repair and associated increased risk of endocarditis. PLAN: 1. Antimicrobials anticoagulation taper steroids. 2. Monitor volume status and adjust fluid intake accordingly. 3. Anti-failure regimen until off pressors. 4. Await culture results. 5. May need to consider transesophageal echocardiogram. Jatinder Fu M.D. DR: CAROL JOB#: [id number] CC:
[2016-12-02 07:50] LABS: ALANINE AMINOTRANSFERASE 7 U/L (3-41); ALBUMIN/GLOBULIN RATIO 0.7 (1.0-2.7); ANION GAP 20 (5-15); ASPARTATE AMINO TRANSFERASE 21 U/L (5-40); CALCIUM 8.4 mg/dL (8.6-10.2); CARBON DIOXIDE 25 mEQ/L (20-30); CHLORIDE 97 mEQ/L (98-107); CREATININE 3.2 mg/dL (0.7-1.2); HEMOLYSIS 9; POTASSIUM 3.7 mEQ/L (3.4-4.9); SODIUM 142 mEQ/L (135-145); TOTAL PROTEIN 5.8 g/dL (6.6-8.7)
[2016-12-02 08:01] LABS: CHOLESTEROL 95 mg/dL (< 200); CHOLESTEROL/HDL RATIO 1.7 (3.3-4.4); HEMOLYSIS 9; LDL CHOLESTEROL (CALC.) 30 mg/dL (60-99)
--- NOTE | 2016-12-02 08:32 | Wound Care Consultation ---
Wound Assessment Wound Assessment #1: Wound Present on Admission: Yes New Wound: No Status Change of Wound: No Wound Location Body Site Modif: mid Wound Location Body Site: sacral Wound Type: pressure ulcer Andi Test: Does not Andi Pressure Ulcer Stage: IV/unstageable Wound Thickness: Full Thickness Wound Length: 2.0 Wound Width: 1.5 Wound Depth: utd Percent of Wound [place]/Red: 50 Percent of Wound Bed Yellow/Wh: 50 Wound Drainage Description: Serosanguineous Wound Drainage Amount: Scant Wound Drainage Odor: None/Absent Tissue Surrounding Wound: Macerated Wound General Appearance: Draining Wound Assessment #2: Wound Number: #2 Wound Present on Admission: Yes New Wound: No Status Change of Wound: No Wound Location Body Site Modif: left Wound Location Body Site: foot Wound Type: other - transmetatarsal amputation with bone exposed Incisional Wounds: Dehisced Incision Wound Thickness: Full Thickness Percent of Wound Bed Yellow/Wh: 40 Percent of Wound Black/Brown: 60 Wound Drainage Amount: None Wound Drainage Odor: None/Absent Tissue Surrounding Wound: Macerated Wound General Appearance: Blackened, Incision Dehiscence, Bone Visible Wound Assessment #3: Wound Number: #3 Wound Present on Admission: Yes New Wound: No Status Change of Wound: No Wound Location Body Site Modif: left Wound Location Body Site: buttocks Wound Type: scar Andi Test: Does not Andi Wound Thickness: Full Thickness Wound Length: 1.0 Wound Width: 2.0 Wound Depth: utd Wound Drainage Amount: None Wound Drainage Odor: None/Absent Tissue Surrounding Wound: Intact Wound General Appearance: Asymptomatic Wound Assessment #4: Wound Number: #4 Wound Present on Admission: Yes New Wound: No Status Change of Wound: No Wound Location Body Site Modif: right Wound Location Body Site: heel Wound Type: pressure ulcer Andi Test: Does not Andi Pressure Ulcer Stage: deep tissue injury Wound Thickness: Full Thickness Wound Length: 3.0 Wound Width: 3.0 Wound Depth: utd Other Colors Identified: brownish Percentage Other Color: 100 Wound Drainage Amount: None Wound Drainage Odor: None/Absent Tissue Surrounding Wound: Intact Wound General Appearance: Asymptomatic Wound Assessment #5: Wound Number: #5 Wound Present on Admission: Yes New Wound: No Status Change of Wound: No Wound Location Body Site Modif: left, right, lower Wound Location Body Site: leg Wound Type: scab Andi Test: Does not Andi Wound Thickness: Full Thickness Wound Drainage Amount: None Wound Drainage Odor: None/Absent Tissue Surrounding Wound: Intact Wound General Appearance: Asymptomatic Wound Comment #1 Sacral stage IV/unstageable Pressure ulcer #2 Left buttock with full thickness scar tissue #3 Right heel DTI pressure ulcer #4 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
[2016-12-02] MEDS ORDERED: Enoxaparin 40mg Inj SUBQ SCH (09:00)
[2016-12-02] MEDS: Pantoprazole Inj IVP SCH ×2 (09:00→21:10)
[2016-12-02] MEDS: Vitamin A&D Oint 2oz Tube TOPIC SCH ×2 (09:00→21:16)
[2016-12-02] MEDS ORDERED: Levophed 4mg/4mL Inj IV ONE (09:07)
[2016-12-02] MEDS: D5NS 1,000 ML IV SCH ×3 (09:30→21:59)
--- NOTE | 2016-12-02 10:43 | Nephrology Progress Note ---
Assessment/Plan Problem List: (1) CHF (congestive heart failure) (2) DENNIS (acute kidney injury) (3) CKD (chronic kidney disease) stage 3, GFR 30-59 ml/min (4) Septic shock Plan oliguric, bp higher in R arm--leg bp likely falsely low, on levophed, repeat fluid bolus, grave prognosis Subjective ROS Limited/Unobtainable: Yes Objective Objective Last 24 Hour Vital Signs Date Time Temp Pulse Resp B/P Pulse Ox O2 Delivery O2 Flow Rate FiO2 12/02/16 10:00 90/45 12/02/16 09:00 96/46 12/02/16 08:00 105 12/02/16 08:00 99/63 12/02/16 07:00 98/21 12/02/16 07:00 100 11 96/41 100 Nasal Cannula 2.0 12/02/16 06:45 100 13 97/62 100 Nasal Cannula 2.0 12/02/16 06:30 101 14 97/67 100 Nasal Cannula 2.0 12/02/16 06:15 99 11 103/25 100 Nasal Cannula 2.0 12/02/16 06:00 97 10 89/43 100 Nasal Cannula 2.0 12/02/16 06:00 89/43 12/02/16 05:45 93 14 88/53 100 Nasal Cannula 2.0 12/02/16 05:41 80/35 12/02/16 05:30 100 19 80/35 100 Nasal Cannula 2.0 12/02/16 05:15 100 12 94/23 100 Nasal Cannula 2.0 12/02/16 05:00 98/47 12/02/16 05:00 104 12 98/47 97 Nasal Cannula 2.0 12/02/16 04:45 103 13 97/36 97 Nasal Cannula 2.0 12/02/16 04:30 104 14 94/57 100 Nasal Cannula 2.0 12/02/16 04:15 104 11 99/30 100 Nasal Cannula 2.0 12/02/16 04:00 97/35 12/02/16 04:00 104 12/02/16 04:00 97.0 104 9 97/35 100 Nasal Cannula 2.0 12/02/16 03:45 104 9 100/30 100 Nasal Cannula 2.0 12/02/16 03:30 104 13 94/36 100 Nasal Cannula 2.0 12/02/16 03:15 105 8 98/36 100 Nasal Cannula 2.0 12/02/16 03:00 106 8 104/63 100 Nasal Cannula 2.0 12/02/16 03:00 104/63 12/02/16 02:45 106 17 62/42 100 Nasal Cannula 2.0 12/02/16 02:30 108 11 85/26 100 Nasal Cannula 2.0 12/02/16 02:29 83/40 12/02/16 02:15 109 13 70/50 99 Nasal Cannula 2.0 12/02/16 02:00 109 15 103/58 100 Nasal Cannula 2.0 12/02/16 02:00 103/58 12/02/16 01:45 111 12 108/42 99 Nasal Cannula 2.0 12/02/16 01:30 106 9 72/30 99 Nasal Cannula 2.0 12/02/16 01:15 106 11 91/74 100 Nasal Cannula 2.0 12/02/16 01:00 107 14 85/31 100 Nasal Cannula 2.0 12/02/16 01:00 97/49 12/02/16 00:45 105 13 87/29 100 Nasal Cannula 2.0 12/02/16 00:30 106 12 93/29 100 Nasal Cannula 2.0 12/02/16 00:15 106 10 86/60 100 Nasal Cannula 2.0 12/02/16 00:00 105 12/02/16 00:00 97.0 105 11 94/45 98 Nasal Cannula 2.0 12/02/16 00:00 94/46 12/01/16 23:46 77/18 12/01/16 23:45 106 11 77/18 100 Nasal Cannula 2.0 12/01/16 23:30 107 11 96/73 99 Nasal Cannula 2.0 12/01/16 23:15 106 12 90/18 100 Nasal Cannula 2.0 12/01/16 23:00 106 12 97/27 100 Nasal Cannula 2.0 12/01/16 23:00 97/27 12/01/16 22:45 106 12 99/52 100 Nasal Cannula 2.0 12/01/16 22:30 108 14 95/42 100 Nasal Cannula 2.0 12/01/16 22:15 112 15 96/59 100 Nasal Cannula 2.0 12/01/16 22:00 108 13 91/62 100 Nasal Cannula 2.0 12/01/16 21:45 108 10 85/37 100 Nasal Cannula 2.0 12/01/16 21:30 109 11 96/54 100 Nasal Cannula 2.0 12/01/16 21:15 108 14 93/39 100 Nasal Cannula 2.0 12/01/16 21:02 101/36 12/01/16 21:00 110 12 105/89 100 Nasal Cannula 2.0 12/01/16 20:45 110 19 101/36 100 Nasal Cannula 2.0 12/01/16 20:30 110 14 102/21 100 Nasal Cannula 2.0 12/01/16 20:15 110 14 86/32 100 Nasal Cannula 2.0 12/01/16 20:00 108 12/01/16 20:00 97.8 111 14 102/70 100 Nasal Cannula 2.0 12/01/16 19:45 114 12 113/35 100 Nasal Cannula 2.0 12/01/16 19:30 115 12 104/18 100 Nasal Cannula 2.0 12/01/16 19:15 116 12 105/17 100 Nasal Cannula 2.0 12/01/16 19:00 117 13 77/25 100 Nasal Cannula 2.0 12/01/16 18:45 117 14 85/64 100 Nasal Cannula 2.0 12/01/16 18:30 115 16 88/48 100 Nasal Cannula 2.0 12/01/16 18:15 114 15 106/83 100 Nasal Cannula 2.0 12/01/16 18:00 114 15 90/48 100 Nasal Cannula 2.0 12/01/16 17:45 109 14 71/57 100 Nasal Cannula 2.0 12/01/16 17:30 106 11 80/35 100 Nasal Cannula 2.0 12/01/16 17:15 105 11 75/48 100 Nasal Cannula 2.0 12/01/16 17:00 105 10 75/48 10 Nasal Cannula 2.0 12/01/16 16:45 105 10 93/38 100 Nasal Cannula 2.0 12/01/16 16:36 80/63 12/01/16 16:30 103 12 60/34 100 Nasal Cannula 2.0 12/01/16 16:15 104 15 80/57 100 Nasal Cannula 2.0 12/01/16 16:00 99 12/01/16 16:00 97.7 99 14 89/54 100 Nasal Cannula 2.0 12/01/16 15:45 97 13 82/26 100 Nasal Cannula 2.0 12/01/16 15:30 95 12 75/39 100 Nasal Cannula 2.0 12/01/16 15:15 95 18 70/24 100 Room Air 12/01/16 15:00 95 18 90/40 100 Room Air 12/01/16 14:45 94 17 91/41 100 Room Air 12/01/16 14:30 96 17 90/40 100 Room Air 12/01/16 14:15 98.5 96 17 92/40 100 Room Air 12/01/16 14:00 96 17 90/40 100 Room Air 12/01/16 13:45 96 17 101/40 100 Room Air 12/01/16 13:31 100 Nasal Cannula 2.0 28 12/01/16 13:30 95 15 94/43 98 Room Air 12/01/16 13:30 Nasal Cannula 2.0 28 12/01/16 13:15 96 12 103/42 98 Room Air 12/01/16 13:00 97 13 100/40 98 Room Air 12/01/16 12:45 97 13 102/39 98 Room Air 12/01/16 12:30 97 13 100/40 98 Room Air 12/01/16 12:15 96 13 99/34 98 Room Air 12/01/16 12:00 98 12/01/16 12:00 98.6 99 12 99/38 98 Room Air 12/01/16 11:45 99 13 100/44 98 Room Air 12/01/16 11:30 99 13 100/44 98 Room Air 12/01/16 11:15 99 14 94/47 98 Room Air 12/01/16 11:00 101 15 100/37 98 Room Air 12/01/16 10:50 98.4 100 16 105/38 99 Room Air 12/01/16 10:42 98.4 100 16 105/38 100 Room Air Intake and Output 12/01/16 12/02/16 19:00 07:00 Intake Total 1115.30 ml 2502.60 ml Output Total 90 ml 90 ml Balance 1025.30 ml 2412.60 ml Intake Oral 0 ml IV Total 1115.30 ml 2502.60 ml Output Urine Total 90 ml 90 ml # Bowel Movements 1 Laboratory Tests 12/01/16 16:30: Activated Partial Thromboplast Time 36H 12/01/16 19:30: Urine Osmolality [Pending], Urine Random Sodium 42, Urine Creatinine 88.4 12/01/16 23:20: Activated Partial Thromboplast Time > 200*H 12/02/16 05:00: White Blood Count 9.0, Red Blood Count 3.43L, Hemoglobin 10.7L, Hematocrit 36.0L , Mean Corpuscular Volume 105H, Mean Corpuscular Hemoglobin 31.1H, Mean Corpuscular Hemoglobin Concent 29.6L, Red Cell Distribution Width 19.9H, Platelet Count 133L, Mean Platelet Volume 11.4H, Neutrophils (%) (Auto) 82.8H, Lymphocytes (%) (Auto) 7.9L, Monocytes (%) (Auto) 8.9, Eosinophils (%) (Auto) 0.1, Basophils (%) (Auto) 0.4, Sodium Level 142, Potassium Level 3.7, Chloride Level 97L, Carbon Dioxide Level 25, Anion Gap 20H, Blood Urea Nitrogen 46H, Creatinine 3.2H, Estimat Glomerular Filtration Rate , Glucose Level 299H, Hemoglobin A1c 6.1H, Uric Acid 4.0, Calcium Level 8.4L, Total Bilirubin 0.6, Aspartate Amino Transf (AST/SGOT) 21, Alanine Aminotransferase (ALT/SGPT) 7, Alkaline Phosphatase 116, Total Creatine Kinase 26L, Total Protein 5.8L, Albumin 2.4L, Globulin 3.4, Albumin/Globulin Ratio 0.7L, Triglycerides Level 38 , Cholesterol Level 95, LDL Cholesterol 30L, HDL Cholesterol 57, Cholesterol/ HDL Ratio 1.7L, Prostate Specific Antigen 8.0H, Vitamin B12 Level > 2000H 12/02/16 09:00: Activated Partial Thromboplast Time > 150*H Height (Feet): 5 Height (Inches): 11.00 Weight (Pounds): 200 General Appearance: no apparent distress EENT: normal ENT inspection Neck: normal alignment Cardiovascular: regular rhythm Respiratory/Chest: lungs clear Abdomen: non tender, soft Extremities: trace edema Neurologic: unresponsive NARCISO CRABTREE Dec 02, 2016 10:43
--- NOTE | 2016-12-02 11:35 | Diagnostic Imaging Report ---
Indication: Pain Comparison: None Findings: 3 views of the left foot were obtained. Transmetatarsal amputation noted. Extensive vascular calcifications are present. The bones are osteopenic. Impression: No plain film evidence for osteomyelitis. Transmetatarsal amputation noted.
--- NOTE | 2016-12-02 11:37 | Diagnostic Imaging Report ---
Indication: Chest Pain Comparison: 11/30/16 A single view chest radiograph was obtained. Findings: Cardiomegaly is stable. Sternotomy is noted as well as pacemaker. Lungs remain clear. PICC line is in good position. Impression: Stable findings.
--- NOTE | 2016-12-02 15:51 | Infectious Diseases Prog Note ---
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 3) pmh noted, arf 4) allergies - codeine and spironolactone P) 1) vancomycin and meropenem 2) check cultures, labs and f/u chest x-ray 3) podiatry evaluation of left stump wound for possible debridement Subjective Allergies: Coded Allergies: CODEINE (Verified Allergy, Unknown, 10/25/12) SPIRONOLACTONE (Verified Allergy, Unknown, 11/30/16) Objective Vital Signs Last 24 Hour Vital Signs Date Time Temp Pulse Resp B/P Pulse Ox O2 Delivery O2 Flow Rate FiO2 12/02/16 15:00 85 15 121/69 100 Nasal Cannula 2.0 12/02/16 14:00 82 15 109/76 100 Nasal Cannula 2.0 12/02/16 13:00 81 13 122/69 100 Nasal Cannula 2.0 12/02/16 12:00 98.9 83 17 124/56 100 Nasal Cannula 2.0 12/02/16 12:00 81 12/02/16 12:00 124/56 12/02/16 11:00 109/65 12/02/16 11:00 99 18 138/65 100 Nasal Cannula 2.0 12/02/16 10:45 104 18 112/73 100 Nasal Cannula 2.0 12/02/16 10:30 104 16 100/63 100 Nasal Cannula 2.0 12/02/16 10:15 103 19 95/64 100 Nasal Cannula 2.0 12/02/16 10:00 100 13 70/27 100 Nasal Cannula 2.0 12/02/16 10:00 90/45 12/02/16 09:45 100 14 95/12 100 Nasal Cannula 2.0 12/02/16 09:30 100 14 108/93 100 Nasal Cannula 2.0 12/02/16 09:15 97 12 99/29 100 Nasal Cannula 2.0 12/02/16 09:00 94 13 87/13 100 Nasal Cannula 2.0 12/02/16 09:00 96/46 12/02/16 08:45 99 14 98/13 100 Nasal Cannula 2.0 12/02/16 08:30 101 13 97/14 100 Nasal Cannula 2.0 12/02/16 08:15 101 13 79/26 100 Nasal Cannula 2.0 12/02/16 08:00 105 12/02/16 08:00 98.1 101 14 56/20 100 Nasal Cannula 2.0 12/02/16 08:00 99/63 12/02/16 07:45 101 14 96/21 100 Nasal Cannula 2.0 12/02/16 07:30 100 15 96/36 100 Nasal Cannula 2.0 12/02/16 07:15 101 15 95/50 100 Nasal Cannula 2.0 12/02/16 07:00 98/21 12/02/16 07:00 100 11 96/41 100 Nasal Cannula 2.0 12/02/16 06:45 100 13 97/62 100 Nasal Cannula 2.0 12/02/16 06:30 101 14 97/67 100 Nasal Cannula 2.0 12/02/16 06:15 99 11 103/25 100 Nasal Cannula 2.0 12/02/16 06:00 97 10 89/43 100 Nasal Cannula 2.0 12/02/16 06:00 89/43 12/02/16 05:45 93 14 88/53 100 Nasal Cannula 2.0 12/02/16 05:41 80/35 12/02/16 05:30 100 19 80/35 100 Nasal Cannula 2.0 12/02/16 05:15 100 12 94/23 100 Nasal Cannula 2.0 12/02/16 05:00 98/47 12/02/16 05:00 104 12 98/47 97 Nasal Cannula 2.0 12/02/16 04:45 103 13 97/36 97 Nasal Cannula 2.0 12/02/16 04:30 104 14 94/57 100 Nasal Cannula 2.0 12/02/16 04:15 104 11 99/30 100 Nasal Cannula 2.0 12/02/16 04:00 97/35 12/02/16 04:00 104 12/02/16 04:00 97.0 104 9 97/35 100 Nasal Cannula 2.0 12/02/16 03:45 104 9 100/30 100 Nasal Cannula 2.0 12/02/16 03:30 104 13 94/36 100 Nasal Cannula 2.0 12/02/16 03:15 105 8 98/36 100 Nasal Cannula 2.0 12/02/16 03:00 106 8 104/63 100 Nasal Cannula 2.0 12/02/16 03:00 104/63 12/02/16 02:45 106 17 62/42 100 Nasal Cannula 2.0 12/02/16 02:30 108 11 85/26 100 Nasal Cannula 2.0 12/02/16 02:29 83/40 12/02/16 02:15 109 13 70/50 99 Nasal Cannula 2.0 12/02/16 02:00 109 15 103/58 100 Nasal Cannula 2.0 12/02/16 02:00 103/58 12/02/16 01:45 111 12 108/42 99 Nasal Cannula 2.0 12/02/16 01:30 106 9 72/30 99 Nasal Cannula 2.0 12/02/16 01:15 106 11 91/74 100 Nasal Cannula 2.0 12/02/16 01:00 107 14 85/31 100 Nasal Cannula 2.0 12/02/16 01:00 97/49 12/02/16 00:45 105 13 87/29 100 Nasal Cannula 2.0 12/02/16 00:30 106 12 93/29 100 Nasal Cannula 2.0 12/02/16 00:15 106 10 86/60 100 Nasal Cannula 2.0 12/02/16 00:00 105 12/02/16 00:00 97.0 105 11 94/45 98 Nasal Cannula 2.0 12/02/16 00:00 94/46 12/01/16 23:46 77/18 12/01/16 23:45 106 11 77/18 100 Nasal Cannula 2.0 12/01/16 23:30 107 11 96/73 99 Nasal Cannula 2.0 12/01/16 23:15 106 12 90/18 100 Nasal Cannula 2.0 12/01/16 23:00 106 12 97/27 100 Nasal Cannula 2.0 12/01/16 23:00 97/27 12/01/16 22:45 106 12 99/52 100 Nasal Cannula 2.0 12/01/16 22:30 108 14 95/42 100 Nasal Cannula 2.0 12/01/16 22:15 112 15 96/59 100 Nasal Cannula 2.0 12/01/16 22:00 108 13 91/62 100 Nasal Cannula 2.0 12/01/16 21:45 108 10 85/37 100 Nasal Cannula 2.0 12/01/16 21:30 109 11 96/54 100 Nasal Cannula 2.0 12/01/16 21:15 108 14 93/39 100 Nasal Cannula 2.0 12/01/16 21:02 101/36 12/01/16 21:00 110 12 105/89 100 Nasal Cannula 2.0 12/01/16 20:45 110 19 101/36 100 Nasal Cannula 2.0 12/01/16 20:30 110 14 102/21 100 Nasal Cannula 2.0 12/01/16 20:15 110 14 86/32 100 Nasal Cannula 2.0 12/01/16 20:00 108 12/01/16 20:00 97.8 111 14 102/70 100 Nasal Cannula 2.0 12/01/16 19:45 114 12 113/35 100 Nasal Cannula 2.0 12/01/16 19:30 115 12 104/18 100 Nasal Cannula 2.0 12/01/16 19:15 116 12 105/17 100 Nasal Cannula 2.0 12/01/16 19:00 117 13 77/25 100 Nasal Cannula 2.0 12/01/16 18:45 117 14 85/64 100 Nasal Cannula 2.0 12/01/16 18:30 115 16 88/48 100 Nasal Cannula 2.0 12/01/16 18:15 114 15 106/83 100 Nasal Cannula 2.0 12/01/16 18:00 114 15 90/48 100 Nasal Cannula 2.0 12/01/16 17:45 109 14 71/57 100 Nasal Cannula 2.0 12/01/16 17:30 106 11 80/35 100 Nasal Cannula 2.0 12/01/16 17:15 105 11 75/48 100 Nasal Cannula 2.0 12/01/16 17:00 105 10 75/48 10 Nasal Cannula 2.0 12/01/16 16:45 105 10 93/38 100 Nasal Cannula 2.0 12/01/16 16:36 80/63 12/01/16 16:30 103 12 60/34 100 Nasal Cannula 2.0 12/01/16 16:15 104 15 80/57 100 Nasal Cannula 2.0 12/01/16 16:00 99 12/01/16 16:00 97.7 99 14 89/54 100 Nasal Cannula 2.0 Height (Feet): 5 Height (Inches): 11.00 Weight (Pounds): 200 Microbiology Date/Time Source Procedure Growth Status 12/01/16 00:50 Blood Blood Culture - Preliminary NO GROWTH AFTER 24 HOURS Resulted 12/01/16 00:50 Blood Blood Culture - Preliminary NO GROWTH AFTER 24 HOURS Resulted Laboratory Tests Test 12/01/16 16:30 12/01/16 19:30 12/01/16 23:20 12/02/16 05:00 Activated Partial Thromboplast Time 36 SEC (23-33) H > 200 SEC (23-33) *H Urine Osmolality Pending Urine Random Sodium 42 mmol/L Urine Creatinine 88.4 mg/dL White Blood Count 9.0 K/UL (4.8-10.8) Red Blood Count 3.43 M/UL (4.70-6.10) L Hemoglobin 10.7 G/DL (14.2-18.0) L Hematocrit 36.0 % (42.0-52.0) L Mean Corpuscular Volume 105 FL (80-99) H Mean Corpuscular Hemoglobin 31.1 PG (27.0-31.0) H Mean Corpuscular Hemoglobin Concent 29.6 G/DL (32.0-36.0) L Red Cell Distribution Width 19.9 % (11.6-14.8) H Platelet Count 133 K/UL (150-450) L Mean Platelet Volume 11.4 FL (6.5-10.1) H Neutrophils (%) (Auto) 82.8 % (45.0-75.0) H Lymphocytes (%) (Auto) 7.9 % (20.0-45.0) L Monocytes (%) (Auto) 8.9 % (1.0-10.0) Eosinophils (%) (Auto) 0.1 % (0.0-3.0) Basophils (%) (Auto) 0.4 % (0.0-2.0) Sodium Level 142 mEQ/L (135-145) Potassium Level 3.7 mEQ/L (3.4-4.9) Chloride Level 97 mEQ/L (98-107) L Carbon Dioxide Level 25 mEQ/L (20-30) Anion Gap 20 (5-15) H Blood Urea Nitrogen 46 mg/dL (7-23) H Creatinine 3.2 mg/dL (0.7-1.2) H Estimat Glomerular Filtration Rate mL/min (>60) Glucose Level 299 mg/dL (74-106) H Hemoglobin A1c 6.1 % (< 6.0) H Uric Acid 4.0 mg/dL (3.0-7.5) Calcium Level 8.4 mg/dL (8.6-10.2) L Total Bilirubin 0.6 mg/dL (0.0-1.2) Aspartate Amino Transf (AST/SGOT) 21 U/L (5-40) Alanine Aminotransferase (ALT/SGPT) 7 U/L (3-41) Alkaline Phosphatase 116 U/L (40-129) Total Creatine Kinase 26 U/L (38-174) L Total Protein 5.8 g/dL (6.6-8.7) L Albumin 2.4 g/dL (3.5-5.2) L Globulin 3.4 g/dL Albumin/Globulin Ratio 0.7 (1.0-2.7) L Triglycerides Level 38 mg/dL (< 150) Cholesterol Level 95 mg/dL (< 200) LDL Cholesterol 30 mg/dL (60-99) L HDL Cholesterol 57 mg/dL (> 60) Cholesterol/HDL Ratio 1.7 (3.3-4.4) L Prostate Specific Antigen 8.0 ng/mL (< 4.5) H Vitamin B12 Level > 2000 pg/mL (211-946) H Test 12/02/16 09:00 Activated Partial Thromboplast Time > 150 SEC (23-33) *H Current Medications Medications (Trade) Dose Ordered Sig/Luis Route PRN Reason Start Time Stop Time Status Last Admin Dose Admin Collagenase (Santyl) 1 applic DAILY TOPIC 12/02/16 09:00 01/01/17 08:59 12/02/16 09:00 Dextrose STAT PRN IV Hypoglycemia 12/01/16 14:45 12/31/16 14:44 Dextrose/Sodium Chloride (D5ns) 1,000 ml @ 100 mls/hr Q10H IV 12/01/16 13:30 12/31/16 13:29 12/02/16 12:30 Heparin Sodium/ Dextrose 500 ml @ 18.144 mls/ hr adjust per protocol IV 12/02/16 11:15 01/01/17 11:14 12/02/16 12:20 Insulin Aspart (NovoLOG) EVERY 6 HOURS SUBQ 12/01/16 18:00 12/31/16 17:59 12/02/16 12:23 Meropenem/Sodium Chloride (Merrem/Sodium Chloride) 55 ml @ 110 mls/hr Q12HR@0600,1800 IV 12/02/16 18:00 12/07/16 17:59 Norepinephrine Bitartrate/ Dextrose (Levophed/D5W) 250 ml @ 0 mls/hr Q24H IV 12/01/16 16:00 12/31/16 15:59 12/02/16 05:41 Pantoprazole 40 mg 40 mg EVERY 12 HOURS IVP 12/02/16 09:00 01/01/17 08:59 12/02/16 09:00 Vancomycin HCl (Vanco rx to dose) 1 ea DAILY PRN MISC Per rx protocol 12/01/16 14:30 12/31/16 14:29 Vancomycin HCl/ Dextrose (Vancomycin/D5W) 110 ml @ 110 mls/hr Q24H IV 12/02/16 22:00 12/07/16 21:59 Vitamin A/Vitamin D 1 applic 1 applic EVERY 12 HOURS TOPIC 12/02/16 09:00 01/01/17 08:59 12/02/16 09:00 ALBERTO CUEVAS Dec 02, 2016 15:51
[2016-12-02] MEDS ORDERED: D5NS 1000ml IV ONE (17:24)
[2016-12-02] MEDS ORDERED: NS 275ml ONE (17:24)
[2016-12-02] MEDS ORDERED: Tubing IV Secondary IV ONE (17:24)
[2016-12-02] MEDS: Meropenem 500 MG in NS 55 ML IV SCH (17:35)
[2016-12-02] MEDS ORDERED: Meropenem 500 MG in NS 100 ML IV SCH (18:00)
--- NOTE | 2016-12-02 19:51 | Pulmonolgy Critical Care Note ---
Critical Care - Asmt/Plan Assessment/Plan: IMPRESSION: 1. Shock. 2. Sepsis. 3. Hypothermia. 4. Severe cardiomyopathy. 5. Cardiac defibrillator. 6. Ischemic heart disease. 7. Acute on chronic systolic congestive heart failure. 8. 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 9. Remains critical with guarded prognosis. 10. History of mitral valve repair with increased risk for endocarditis. PLAN: 1. improving 2. Intensive care unit monitoring. 3. Continue broad-spectrum antibiotics. 4. Taper pressors as able. 5. Cautious hydration due to severe cardiomyopathy. 6. Cautious anticoagulation. 7. Monitoring for bleeding in view of history of previous. 8. Monitor hemoglobin. 9. FU culutres 10 nebs 11. NPO while altered, swallow eval if mentation improves continue ICU level of care. greater than 35 minutes of CC tmes spent with the patient, reviewing the records adn senior talent management consultant notes, dw nursing, orders and plans for hte day. Critical Care - Objective Last 24 Hour Vital Signs Date Time Temp Pulse Resp B/P Pulse Ox O2 Delivery O2 Flow Rate FiO2 12/02/16 19:00 81 16 123/100 100 Nasal Cannula 2.0 12/02/16 18:00 79 16 121/57 100 Nasal Cannula 2.0 12/02/16 17:00 80 15 116/63 99 Nasal Cannula 2.0 12/02/16 16:00 81 12/02/16 16:00 98.0 80 17 85/67 100 Nasal Cannula 2.0 12/02/16 15:00 85 15 121/69 100 Nasal Cannula 2.0 12/02/16 14:00 82 15 109/76 100 Nasal Cannula 2.0 12/02/16 13:00 81 13 122/69 100 Nasal Cannula 2.0 12/02/16 12:00 98.9 83 17 124/56 100 Nasal Cannula 2.0 12/02/16 12:00 81 12/02/16 12:00 124/56 12/02/16 11:00 109/65 12/02/16 11:00 99 18 138/65 100 Nasal Cannula 2.0 12/02/16 10:45 104 18 112/73 100 Nasal Cannula 2.0 12/02/16 10:30 104 16 100/63 100 Nasal Cannula 2.0 12/02/16 10:15 103 19 95/64 100 Nasal Cannula 2.0 12/02/16 10:00 100 13 70/27 100 Nasal Cannula 2.0 12/02/16 10:00 90/45 12/02/16 09:45 100 14 95/12 100 Nasal Cannula 2.0 12/02/16 09:30 100 14 108/93 100 Nasal Cannula 2.0 12/02/16 09:15 97 12 99/29 100 Nasal Cannula 2.0 12/02/16 09:00 94 13 87/13 100 Nasal Cannula 2.0 12/02/16 09:00 96/46 12/02/16 08:45 99 14 98/13 100 Nasal Cannula 2.0 12/02/16 08:30 101 13 97/14 100 Nasal Cannula 2.0 12/02/16 08:15 101 13 79/26 100 Nasal Cannula 2.0 12/02/16 08:00 105 12/02/16 08:00 98.1 101 14 56/20 100 Nasal Cannula 2.0 12/02/16 08:00 99/63 12/02/16 07:45 101 14 96/21 100 Nasal Cannula 2.0 12/02/16 07:30 100 Nasal Cannula 2.0 28 12/02/16 07:30 100 15 96/36 100 Nasal Cannula 2.0 12/02/16 07:30 Nasal Cannula 2.0 28 12/02/16 07:15 101 15 95/50 100 Nasal Cannula 2.0 12/02/16 07:00 98/21 12/02/16 07:00 100 11 96/41 100 Nasal Cannula 2.0 12/02/16 06:45 100 13 97/62 100 Nasal Cannula 2.0 12/02/16 06:30 101 14 97/67 100 Nasal Cannula 2.0 12/02/16 06:15 99 11 103/25 100 Nasal Cannula 2.0 12/02/16 06:00 97 10 89/43 100 Nasal Cannula 2.0 12/02/16 06:00 89/43 12/02/16 05:45 93 14 88/53 100 Nasal Cannula 2.0 12/02/16 05:41 80/35 12/02/16 05:30 100 19 80/35 100 Nasal Cannula 2.0 12/02/16 05:15 100 12 94/23 100 Nasal Cannula 2.0 12/02/16 05:00 98/47 2/25/17 05:00 104 12 98/47 97 Nasal Cannula 2.0 12/02/16 04:45 103 13 97/36 97 Nasal Cannula 2.0 12/02/16 04:30 104 14 94/57 100 Nasal Cannula 2.0 12/02/16 04:15 104 11 99/30 100 Nasal Cannula 2.0 12/02/16 04:00 97/35 12/02/16 04:00 104 12/02/16 04:00 97.0 104 9 97/35 100 Nasal Cannula 2.0 12/02/16 03:45 104 9 100/30 100 Nasal Cannula 2.0 12/02/16 03:30 104 13 94/36 100 Nasal Cannula 2.0 12/02/16 03:15 105 8 98/36 100 Nasal Cannula 2.0 12/02/16 03:00 106 8 104/63 100 Nasal Cannula 2.0 12/02/16 03:00 104/63 12/02/16 02:45 106 17 62/42 100 Nasal Cannula 2.0 12/02/16 02:30 108 11 85/26 100 Nasal Cannula 2.0 12/02/16 02:29 83/40 12/02/16 02:15 109 13 70/50 99 Nasal Cannula 2.0 12/02/16 02:00 109 15 103/58 100 Nasal Cannula 2.0 12/02/16 02:00 103/58 12/02/16 01:45 111 12 108/42 99 Nasal Cannula 2.0 12/02/16 01:30 106 9 72/30 99 Nasal Cannula 2.0 12/02/16 01:15 106 11 91/74 100 Nasal Cannula 2.0 12/02/16 01:00 107 14 85/31 100 Nasal Cannula 2.0 12/02/16 01:00 97/49 12/02/16 00:45 105 13 87/29 100 Nasal Cannula 2.0 12/02/16 00:30 106 12 93/29 100 Nasal Cannula 2.0 12/02/16 00:15 106 10 86/60 100 Nasal Cannula 2.0 12/02/16 00:00 105 12/02/16 00:00 97.0 105 11 94/45 98 Nasal Cannula 2.0 12/02/16 00:00 94/46 12/01/16 23:46 77/18 12/01/16 23:45 106 11 77/18 100 Nasal Cannula 2.0 12/01/16 23:30 107 11 96/73 99 Nasal Cannula 2.0 12/01/16 23:15 106 12 90/18 100 Nasal Cannula 2.0 12/01/16 23:00 106 12 97/27 100 Nasal Cannula 2.0 12/01/16 23:00 97/27 12/01/16 22:45 106 12 99/52 100 Nasal Cannula 2.0 12/01/16 22:30 108 14 95/42 100 Nasal Cannula 2.0 12/01/16 22:15 112 15 96/59 100 Nasal Cannula 2.0 12/01/16 22:00 108 13 91/62 100 Nasal Cannula 2.0 12/01/16 21:45 108 10 85/37 100 Nasal Cannula 2.0 12/01/16 21:30 109 11 96/54 100 Nasal Cannula 2.0 12/01/16 21:15 108 14 93/39 100 Nasal Cannula 2.0 12/01/16 21:02 101/36 12/01/16 21:00 110 12 105/89 100 Nasal Cannula 2.0 12/01/16 20:45 110 19 101/36 100 Nasal Cannula 2.0 12/01/16 20:30 110 14 102/21 100 Nasal Cannula 2.0 12/01/16 20:15 110 14 86/32 100 Nasal Cannula 2.0 12/01/16 20:00 108 12/01/16 20:00 97.8 111 14 102/70 100 Nasal Cannula 2.0 Status: somnolent Condition: critical Lungs: clear Heart: HR/BP stable Abdomen: soft, non-tender Extremities: no C/C/E Decubiti: location Micro: Microbiology Date/Time Source Procedure Growth Status 12/01/16 00:50 Blood Blood Culture - Preliminary NO GROWTH AFTER 24 HOURS Resulted 12/01/16 00:50 Blood Blood Culture - Preliminary NO GROWTH AFTER 24 HOURS Resulted 12/01/16 19:30 Foot Left Worksheet Accucheck: 110 Critical Care - Subjective ROS Limited/Unobtainable: Yes Condition: critical FI02: 28 I&O: Intake and Output 12/01/16 12/02/16 19:00 07:00 Intake Total 1115.30 ml 2502.60 ml Output Total 90 ml 90 ml Balance 1025.30 ml 2412.60 ml Intake Oral 0 ml IV Total 1115.30 ml 2502.60 ml Output Urine Total 90 ml 90 ml # Bowel Movements 1 Subjective: lethargic no distress no reports of cp nv or bleeding positive uop no fever on ivf no pressors at thistime mosit cough per nursing CXR: negative 12/02/16 Labs: Microbiology Date/Time Source Procedure Growth Status 12/01/16 00:50 Blood Blood Culture - Preliminary NO GROWTH AFTER 24 HOURS Resulted 12/01/16 00:50 Blood Blood Culture - Preliminary NO GROWTH AFTER 24 HOURS Resulted 12/01/16 19:30 Foot Left Worksheet Current Medications Medications (Trade) Dose Ordered Sig/Luis Route PRN Reason Start Time Stop Time Status Last Admin Dose Admin Collagenase (Santyl) 1 applic DAILY TOPIC 12/02/16 09:00 01/01/17 08:59 12/02/16 09:00 Dextrose STAT PRN IV Hypoglycemia 12/01/16 14:45 12/31/16 14:44 Dextrose/Sodium Chloride (D5ns) 1,000 ml @ 100 mls/hr Q10H IV 12/01/16 13:30 12/31/16 13:29 12/02/16 12:30 Fluconazole (Diflucan) 100 mg DAILY ORAL 12/03/16 09:00 12/10/16 08:59 Haloperidol Lactate (Haldol) 2 mg Q4H PRN IM Agitation 12/02/16 19:45 01/01/17 19:44 Heparin Sodium/ Dextrose 500 ml @ 18.144 mls/ hr adjust per protocol IV 12/02/16 11:15 01/01/17 11:14 12/02/16 12:20 Insulin Aspart (NovoLOG) EVERY 6 HOURS SUBQ 12/01/16 18:00 12/31/16 17:59 12/02/16 12:23 Meropenem/Sodium Chloride (Merrem/Sodium Chloride) 55 ml @ 110 mls/hr Q12HR@0600,1800 IV 12/02/16 18:00 12/07/16 17:59 12/02/16 17:35 Norepinephrine Bitartrate/ Dextrose (Levophed/D5W) 250 ml @ 0 mls/hr Q24H IV 12/01/16 16:00 12/31/16 15:59 12/02/16 05:41 Pantoprazole 40 mg 40 mg EVERY 12 HOURS IVP 12/02/16 09:00 01/01/17 08:59 12/02/16 09:00 Vancomycin HCl (Vanco rx to dose) 1 ea DAILY PRN MISC Per rx protocol 12/01/16 14:30 12/31/16 14:29 Vancomycin HCl/ Dextrose (Vancomycin/D5W) 110 ml @ 110 mls/hr Q24H IV 12/02/16 22:00 12/07/16 21:59 Vitamin A/Vitamin D 1 applic 1 applic EVERY 12 HOURS TOPIC 12/02/16 09:00 01/01/17 08:59 12/02/16 09:00 Laboratory Tests Test 12/01/16 23:20 12/02/16 05:00 12/02/16 09:00 12/02/16 18:30 Activated Partial Thromboplast Time > 200 SEC (23-33) *H > 150 SEC (23-33) *H > 150 SEC (23-33) *H White Blood Count 9.0 K/UL (4.8-10.8) Red Blood Count 3.43 M/UL (4.70-6.10) L Hemoglobin 10.7 G/DL (14.2-18.0) L Hematocrit 36.0 % (42.0-52.0) L Mean Corpuscular Volume 105 FL (80-99) H Mean Corpuscular Hemoglobin 31.1 PG (27.0-31.0) H Mean Corpuscular Hemoglobin Concent 29.6 G/DL (32.0-36.0) L Red Cell Distribution Width 19.9 % (11.6-14.8) H Platelet Count 133 K/UL (150-450) L Mean Platelet Volume 11.4 FL (6.5-10.1) H Neutrophils (%) (Auto) 82.8 % (45.0-75.0) H Lymphocytes (%) (Auto) 7.9 % (20.0-45.0) L Monocytes (%) (Auto) 8.9 % (1.0-10.0) Eosinophils (%) (Auto) 0.1 % (0.0-3.0) Basophils (%) (Auto) 0.4 % (0.0-2.0) Sodium Level 142 mEQ/L (135-145) Potassium Level 3.7 mEQ/L (3.4-4.9) Chloride Level 97 mEQ/L (98-107) L Carbon Dioxide Level 25 mEQ/L (20-30) Anion Gap 20 (5-15) H Blood Urea Nitrogen 46 mg/dL (7-23) H Creatinine 3.2 mg/dL (0.7-1.2) H Estimat Glomerular Filtration Rate mL/min (>60) Glucose Level 299 mg/dL (74-106) H Hemoglobin A1c 6.1 % (< 6.0) H Uric Acid 4.0 mg/dL (3.0-7.5) Calcium Level 8.4 mg/dL (8.6-10.2) L Total Bilirubin 0.6 mg/dL (0.0-1.2) Aspartate Amino Transf (AST/SGOT) 21 U/L (5-40) Alanine Aminotransferase (ALT/SGPT) 7 U/L (3-41) Alkaline Phosphatase 116 U/L (40-129) Total Creatine Kinase 26 U/L (38-174) L Total Protein 5.8 g/dL (6.6-8.7) L Albumin 2.4 g/dL (3.5-5.2) L Globulin 3.4 g/dL Albumin/Globulin Ratio 0.7 (1.0-2.7) L Triglycerides Level 38 mg/dL (< 150) Cholesterol Level 95 mg/dL (< 200) LDL Cholesterol 30 mg/dL (60-99) L HDL Cholesterol 57 mg/dL (> 60) Cholesterol/HDL Ratio 1.7 (3.3-4.4) L Prostate Specific Antigen 8.0 ng/mL (< 4.5) H Vitamin B12 Level > 2000 pg/mL (211-946) H RANDY ARREOLA DO Dec 02, 2016 19:51
[2016-12-02] MEDS: Haloperidol 5mg/ml Inj IM PRN (19:57)
[2016-12-02] MEDS ORDERED: Vancomycin 500 MG in D5W 110 ML IV SCH (22:00)
[2016-12-03] VITALS (15 sets, daily range): BP systolic 97–148; BP diastolic 42–98
[2016-12-03] MEDS: NovoLOG Insulin Flexpen SUBQ SCH ×3 (00:02→12:44)
--- NOTE | 2016-12-03 01:58 | Consultation ---
DATE OF CONSULTATION: INFECTIOUS DISEASES CONSULTATION CONSULTING PHYSICIAN: Nell Daniels M.D. ATTENDING PHYSICIAN: Nathaniel Medellin M.D. REASON FOR CONSULTATION: Septic shock, possible UTI, possible infected left foot stump. CHIEF COMPLAINT: The patient's chief complaint coming in is septic shock and hypothermia. HISTORY OF PRESENT ILLNESS: This is a 75-year-old male, who is overall a very poor historian. The patient presents to the [facility] ICU with septic shock and hypothermia. The patient required pressors, is on pressors today. The patient was seen yesterday and started on meropenem and vancomycin. The patient has a left foot amputation stump site with history of osteo that has possibly infected wound. The patient has positive urinalysis, could have UTI. The patient's foot x-ray showed no osteo. Chest x-ray showed cardiomegaly, but no pneumonia. Infectious diseases consultation was requested for antibiotic management. Again, the patient had vancomycin and meropenem pending workup. MAR was noted. Orders were noted. Notes were reviewed. Case was discussed with Dr. Medellin. This case was discussed with RN. The patient is in ICU at [place]. PAST MEDICAL HISTORY: Includes the following: The patient has a past medical history of chronic kidney disease, dementia, recurrent anemia, urinary retention, history of left foot gangrene, osteo, status post amputation, history of DVT, CHF, cardiomyopathy, hypertension I believe. I am not sure if he has hypertension. I think he does, but I am not sure. Other past medical history, diabetes, hypertension, and elevated cholesterol. Also history of headaches. Please see past medical history in medical record. MEDICATIONS: Upon reviewing the MAR, the patient is on the following medications: The patient is on vancomycin and meropenem. He was on Levophed and pressors, now he is off. He is on heparin, Santyl, Protonix, insulin, vitamin D, norepinephrine. He is off norepinephrine vancomycin and meropenem antibiotics. Outside medications were noted and reconciliated. Please see medications in medical record. ALLERGIES: The patient has allergy to codeine and spironolactone. SOCIAL HISTORY: No mention of smoking, alcohol, or drug abuse at this time. FAMILY HISTORY: Noncontributory. REVIEW OF SYSTEMS: Constitutional: He has generalized weakness and fatigue. No fever. He has chills. He is hypothermic. He is more alert today, poor historian. Head And Neck: No head pain or neck pain. No neck stiffness. Cardiac: No chest pain. He is off pressors. Gastrointestinal: No nausea, vomiting, or diarrhea. Genitourinary: He has a Martino. Pulmonary: He has congestion . Skin: No new rashes. Extremities: He has a left foot stump amputation site. Neurologic: No seizure. PHYSICAL EXAMINATION: GENERAL: He is alert and responsive, more alert than yesterday. He is off pressors. VITAL SIGNS: The patient's pulse rate is 104, respiratory rate 18, blood pressure 112/73, saturation 100%, and temperature is 98.9 degrees. The patient actually on admission had a temperature of 98.5 degrees, quite hypothermic HEENT AND NECK: Head And Neck: Oral exam, no thrush. Eye exam, no icterus. Neck is supple. No JVD. No sinus tenderness. Normocephalic. No facial droop. No neck stiffness. HEART: Regular. No rubs, gallop, or murmur. LUNGS: Clear bilaterally. No rhonchi or rales. ABDOMEN: Soft. Positive bowel sounds. Nontender. SKIN: No rash or dermatitis. MUSCULOSKELETAL: No effusion or contractures. Legs are without cellulitis. PERIPHERAL VASCULAR: Left stump site had some wound with some slough noted, some positive necrosis. RECTAL: Deferred. GENITOURINARY: He has a . Urine is cloudy. LINES: Line sites are without phlebitis. NEUROLOGIC: Generalized weakness, responsive. LABORATORY AND DIAGNOSTIC DATA: Creatinine 3.2. White count is 9.0, hemoglobin 10.7, and platelet count 133,000. Blood cultures are negative. Wound culture was ordered, but was canceled because I guess the wound was dry, but blood cultures are negative today. Urine culture is pending. Urinalysis had 2+ leukocyte esterase, 5-10 white blood cells, showed yeast also. Urine culture is also pending at this time. Chest x-ray showed no evidence of pneumonia. X-ray of the foot showed no osteo. ASSESSMENT AND PLAN: 1. The patient comes in with septic shock, hypothermia, altered mental status, possible urinary tract infection, possible infected left foot stump wound with history of osteo. Chest x-ray is negative. Blood culture is negative today. Continue meropenem and vancomycin. Check urine culture, final culture results, and check followup labs. Continue wound care protocol. Consider podiatry evaluation of left foot stump wound. Continue meropenem and vancomycin pending final workup. Continue intensive care unit care. 2. Elevated creatinine, acute kidney injury consider. 3. Anemia. 4. Dementia. 5. Urinary retention. 6. Martino. 7. History of left foot gangrene, osteo, status post amputation. 8. Deep venous thrombosis. 9. Congestive heart disease. 10. Cardiomyopathy. 11. Diabetes. 12. Hypertension. 13. Hyperlipidemia. 14. Dr. Medellin, sap ppm consultant. 15. Intensive care unit care. 16. Case was discussed with RN. 17. Wound care per protocol. 18. Also consider adding Diflucan for yeast and urine pending urine cultures possibly add Diflucan in addition to meropenem and vancomycin. Thank you. I will follow. Nell Daniels M.D. DR: Taylor JOB#: [id number] CC:
[2016-12-03 04:41] LABS: MEAN CORPUSCULAR VOLUME 103 FL (80-99); MEAN PLATELET VOLUME 11.7 FL (6.5-10.1); PLATELET COUNT 79 K/UL (150-450); RED BLOOD COUNT 3.05 M/UL (4.70-6.10); RED CELL DISTRIBUTION WIDTH 19.6 % (11.6-14.8); WHITE BLOOD COUNT 6.3 K/UL (4.8-10.8)
[2016-12-03 05:51] LABS: ANION GAP 17 (5-15); CALCIUM 8.3 mg/dL (8.6-10.2); CARBON DIOXIDE 24 mEQ/L (20-30); CHLORIDE 101 mEQ/L (98-107); CREATININE 3.5 mg/dL (0.7-1.2); HEMOLYSIS 5; POTASSIUM 3.3 mEQ/L (3.4-4.9); SODIUM 142 mEQ/L (135-145)
[2016-12-03] MEDS ORDERED: Heparin 25,000u/D5W 500ml 500 ML IV SCH ×2 (06:03→14:30)
[2016-12-03] MEDS: Meropenem 500 MG in NS 55 ML IV SCH (06:11)
[2016-12-03] MEDS ORDERED: Heparin 5000 units/ml inj IV ONE (06:15)
[2016-12-03] MEDS: Vitamin A&D Oint 2oz Tube TOPIC SCH (08:55)
[2016-12-03] MEDS: Pantoprazole Inj IVP SCH (08:56)
[2016-12-03] MEDS ORDERED: Fluconazole 100mg tab ORAL SCH (09:00)
[2016-12-03] MEDS ORDERED: D5NS 1000ml IV ONE ×2 (09:55→16:14)
[2016-12-03] MEDS ORDERED: Tubing IV Secondary IV ONE (09:55)
--- NOTE | 2016-12-03 10:01 | Podiatric Progress Note ---
Assessment/Plan Patient Carlos Perez is a 75 year old male who was admitted on Dec 01, 2016 at 00: 03 with altered mental status Problems: (1) Status post transmetatarsal amputation of left foot (2) Open wound of left foot Assessment/Plan Patient is known to podiatry service. Discussed with patient's family regarding his condition of peripheral vascular disease and left foot non healing wound after transmetatarsal amputation. - Recommend BKA vs AKA - Continue local wound care for now Subjective Reason for consult Left foot wound with exposed metatarsals 1-5 Allergies: Coded Allergies: CODEINE (Verified Allergy, Unknown, 10/25/12) SPIRONOLACTONE (Verified Allergy, Unknown, 11/30/16) Subjective Patient is unable to communicate effectively Objective Exam Last 24 Hour Vital Signs Date Time Temp Pulse Resp B/P Pulse Ox O2 Delivery O2 Flow Rate FiO2 12/03/16 09:00 75 10 147/42 100 Nasal Cannula 2.0 12/03/16 08:00 98.0 77 14 131/56 100 Nasal Cannula 2.0 12/03/16 08:00 75 12/03/16 07:00 77 15 97/62 100 Nasal Cannula 2.0 12/03/16 06:00 80 14 118/66 100 Nasal Cannula 2.0 12/03/16 05:00 80 17 131/73 100 Nasal Cannula 2.0 12/03/16 04:00 97.8 78 13 124/56 100 Nasal Cannula 2.0 12/03/16 04:00 81 12/03/16 03:00 80 15 126/66 100 Nasal Cannula 2.0 12/03/16 02:00 79 13 129/67 100 Nasal Cannula 2.0 12/03/16 01:00 79 14 148/73 100 Nasal Cannula 2.0 12/03/16 00:00 81 12/03/16 00:00 98.3 82 13 143/74 100 Nasal Cannula 2.0 12/02/16 23:00 79 16 108/54 100 Nasal Cannula 2.0 12/02/16 22:00 78 16 156/88 100 Nasal Cannula 2.0 12/02/16 21:00 83 16 149/95 100 Nasal Cannula 2.0 12/02/16 20:00 80 12/02/16 20:00 98.1 80 17 141/64 100 Nasal Cannula 2.0 12/02/16 19:00 81 16 123/100 100 Nasal Cannula 2.0 12/02/16 18:00 79 16 121/57 100 Nasal Cannula 2.0 12/02/16 17:00 80 15 116/63 99 Nasal Cannula 2.0 12/02/16 16:00 81 12/02/16 16:00 98.0 80 17 85/67 100 Nasal Cannula 2.0 12/02/16 15:00 85 15 121/69 100 Nasal Cannula 2.0 12/02/16 14:00 82 15 109/76 100 Nasal Cannula 2.0 12/02/16 13:00 81 13 122/69 100 Nasal Cannula 2.0 12/02/16 12:00 98.9 83 17 124/56 100 Nasal Cannula 2.0 12/02/16 12:00 81 12/02/16 12:00 124/56 12/02/16 11:00 109/65 12/02/16 11:00 99 18 138/65 100 Nasal Cannula 2.0 12/02/16 10:45 104 18 112/73 100 Nasal Cannula 2.0 12/02/16 10:30 104 16 100/63 100 Nasal Cannula 2.0 12/02/16 10:15 103 19 95/64 100 Nasal Cannula 2.0 12/02/16 10:00 100 13 70/27 100 Nasal Cannula 2.0 12/02/16 10:00 90/45 Laboratory Tests Test 12/02/16 18:30 12/03/16 03:50 Activated Partial Thromboplast Time > 150 SEC (23-33) *H 52 SEC (23-33) H White Blood Count 6.3 K/UL (4.8-10.8) Red Blood Count 3.05 M/UL (4.70-6.10) L Hemoglobin 9.8 G/DL (14.2-18.0) L Hematocrit 31.5 % (42.0-52.0) L Mean Corpuscular Volume 103 FL (80-99) H Mean Corpuscular Hemoglobin 32.0 PG (27.0-31.0) H Mean Corpuscular Hemoglobin Concent 31.0 G/DL (32.0-36.0) L Red Cell Distribution Width 19.6 % (11.6-14.8) H Platelet Count 79 K/UL (150-450) L Mean Platelet Volume 11.7 FL (6.5-10.1) H Neutrophils (%) (Auto) % (45.0-75.0) Lymphocytes (%) (Auto) % (20.0-45.0) Monocytes (%) (Auto) % (1.0-10.0) Eosinophils (%) (Auto) % (0.0-3.0) Basophils (%) (Auto) % (0.0-2.0) Neutrophils % (Manual) Pending Lymphocytes % (Manual) Pending Platelet Estimate Pending Platelet Morphology Pending Sodium Level 142 mEQ/L (135-145) Potassium Level 3.3 mEQ/L (3.4-4.9) L Chloride Level 101 mEQ/L (98-107) Carbon Dioxide Level 24 mEQ/L (20-30) Anion Gap 17 (5-15) H Blood Urea Nitrogen 48 mg/dL (7-23) H Creatinine 3.5 mg/dL (0.7-1.2) H Estimat Glomerular Filtration Rate mL/min (>60) Glucose Level 94 mg/dL (74-106) # Calcium Level 8.3 mg/dL (8.6-10.2) L Microbiology Date/Time Source Procedure Growth Status 12/01/16 00:50 Blood Blood Culture - Preliminary NO GROWTH AFTER 48 HOURS Resulted 12/01/16 19:30 Wound Gram Stain - Final Resulted 12/01/16 19:30 Wound Wound Culture Pending Resulted 12/01/16 05:06 Nasal Nares MRSA Culture - Final NO METHICILLIN RESISTANT STAPH AUREUS... Complete 12/01/16 01:58 Urine,Clean Catch Urine Culture - Preliminary YEAST Resulted 12/01/16 19:30 Foot Left Gram Stain - Final Resulted 12/01/16 19:30 Foot Left Aerobic Culture Pending Resulted Exam Narrative Left foot wound with exposed metatarsals 1-5. No purulence or malodor. No surrounding erythema or edema. Berny Medina DPM Dec 03, 2016 10:01
[2016-12-03] MEDS: Haloperidol 5mg/ml Inj IM PRN (10:18)
--- NOTE | 2016-12-03 10:35 | Nephrology Progress Note ---
Assessment/Plan Problem List: (1) CHF (congestive heart failure) (2) DENNIS (acute kidney injury) (3) CKD (chronic kidney disease) stage 3, GFR 30-59 ml/min (4) Septic shock Plan oliguric, bp higher in R leg bp likely falsely low other extremities, off levophed, repeat fluid bolus 12/02 and bp better, grave prognosis Subjective ROS Limited/Unobtainable: Yes Objective Objective Last 24 Hour Vital Signs Date Time Temp Pulse Resp B/P Pulse Ox O2 Delivery O2 Flow Rate FiO2 12/03/16 10:00 79 10 140/90 100 Nasal Cannula 2.0 12/03/16 09:00 75 10 147/42 100 Nasal Cannula 2.0 12/03/16 08:00 98.0 77 14 131/56 100 Nasal Cannula 2.0 12/03/16 08:00 75 12/03/16 07:00 77 15 97/62 100 Nasal Cannula 2.0 12/03/16 06:00 80 14 118/66 100 Nasal Cannula 2.0 12/03/16 05:00 80 17 131/73 100 Nasal Cannula 2.0 12/03/16 04:00 97.8 78 13 124/56 100 Nasal Cannula 2.0 12/03/16 04:00 81 12/03/16 03:00 80 15 126/66 100 Nasal Cannula 2.0 12/03/16 02:00 79 13 129/67 100 Nasal Cannula 2.0 12/03/16 01:00 79 14 148/73 100 Nasal Cannula 2.0 12/03/16 00:00 81 12/03/16 00:00 98.3 82 13 143/74 100 Nasal Cannula 2.0 12/02/16 23:00 79 16 108/54 100 Nasal Cannula 2.0 12/02/16 22:00 78 16 156/88 100 Nasal Cannula 2.0 12/02/16 21:00 83 16 149/95 100 Nasal Cannula 2.0 12/02/16 20:00 80 12/02/16 20:00 98.1 80 17 141/64 100 Nasal Cannula 2.0 12/02/16 19:00 81 16 123/100 100 Nasal Cannula 2.0 12/02/16 18:00 79 16 121/57 100 Nasal Cannula 2.0 12/02/16 17:00 80 15 116/63 99 Nasal Cannula 2.0 12/02/16 16:00 81 12/02/16 16:00 98.0 80 17 85/67 100 Nasal Cannula 2.0 12/02/16 15:00 85 15 121/69 100 Nasal Cannula 2.0 12/02/16 14:00 82 15 109/76 100 Nasal Cannula 2.0 12/02/16 13:00 81 13 122/69 100 Nasal Cannula 2.0 12/02/16 12:00 98.9 83 17 124/56 100 Nasal Cannula 2.0 12/02/16 12:00 81 12/02/16 12:00 124/56 12/02/16 11:00 109/65 12/02/16 11:00 99 18 138/65 100 Nasal Cannula 2.0 12/02/16 10:45 104 18 112/73 100 Nasal Cannula 2.0 Intake and Output 12/02/16 12/03/16 18:59 06:59 Intake Total 1952.964 ml 1400.700 ml Output Total 80 ml 70 ml Balance 1872.964 ml 1330.700 ml Intake Oral 0 ml 0 ml IV Total 1952.964 ml 1400.700 ml Output Urine Total 80 ml 70 ml Laboratory Tests 12/02/16 18:30: Activated Partial Thromboplast Time > 150*H 12/03/16 03:50: Activated Partial Thromboplast Time 52H, White Blood Count 6.3, Red Blood Count 3.05L, Hemoglobin 9.8L, Hematocrit 31.5L, Mean Corpuscular Volume 103H, Mean Corpuscular Hemoglobin 32.0H, Mean Corpuscular Hemoglobin Concent 31.0L, Red Cell Distribution Width 19.6H, Platelet Count 79L, Mean Platelet Volume 11.7H, Neutrophils (%) (Auto) , Lymphocytes (%) (Auto) , Monocytes (%) (Auto) , Eosinophils (%) (Auto) , Basophils (%) (Auto) , Neutrophils % (Manual) [Pending] , Lymphocytes % (Manual) [Pending], Platelet Estimate [Pending], Platelet Morphology [Pending], Sodium Level 142, Potassium Level 3.3L, Chloride Level 101 , Carbon Dioxide Level 24, Anion Gap 17H, Blood Urea Nitrogen 48H, Creatinine 3.5H, Estimat Glomerular Filtration Rate , Glucose Level 94#, Calcium Level 8.3L Height (Feet): 5 Height (Inches): 11.00 Weight (Pounds): 200 General Appearance: no apparent distress, confused EENT: normal ENT inspection Neck: normal alignment Cardiovascular: normal rate, regular rhythm Respiratory/Chest: lungs clear, normal breath sounds Abdomen: non tender, soft Extremities: trace edema Neurologic: disoriented NARCISO CRABTREE Dec 03, 2016 10:35
[2016-12-03] MEDS ORDERED: D5NS 1,000 ML IV SCH (11:00)
[2016-12-03 11:22] LABS: BAND NEUTROPHILS % (MANUAL) 0 % (0-8); BASOPHILS % (MANUAL) 0 % (0-2); EOSINOPHILS % (MANUAL) 1 % (0-3); LYMPHOCYTES % (MANUAL) 16 % (20-45); NEUTROPHILS % (MANUAL) 75 % (45-75); PLATELET ESTIMATE DECREASED; PLATELET MORPHOLOGY NORMAL; TOTAL CELLS COUNTED 100
--- NOTE | 2016-12-03 11:22 | Pulmonolgy Critical Care Note ---
Critical Care - Asmt/Plan Assessment/Plan: IMPRESSION: 1. Shock, resolved 2. Sepsis, improved 3. Hypothermia, resolved 4. Severe cardiomyopathy. 5. Cardiac defibrillator. 6. Ischemic heart disease. 7. Acute on chronic systolic congestive heart failure. 8. 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 9. Remains critical with guarded prognosis. 10. History of mitral valve repair with increased risk for endocarditis. PLAN: 1. improving 2. Intensive care unit monitoring. 3. Continue broad-spectrum antibiotics. 4. Taper pressors as able. 5. Cautious hydration due to severe cardiomyopathy. 6. Cautious anticoagulation. 7. Monitoring for bleeding in view of history of previous. 8. Monitor hemoglobin. 9. FU culutres 10 nebs 11. NPO while altered, swallow eval if mentation improves continue ICU level of care. greater than 35 minutes of CC tmes spent with the patient, reviewing the records adn vmware consultant notes, dw nursing, orders and plans for day. Critical Care - Objective Last 24 Hour Vital Signs Date Time Temp Pulse Resp B/P Pulse Ox O2 Delivery O2 Flow Rate FiO2 12/03/16 10:00 79 10 140/90 100 Nasal Cannula 2.0 12/03/16 09:00 75 10 147/42 100 Nasal Cannula 2.0 12/03/16 08:00 98.0 77 14 131/56 100 Nasal Cannula 2.0 12/03/16 08:00 75 12/03/16 07:00 77 15 97/62 100 Nasal Cannula 2.0 12/03/16 06:00 80 14 118/66 100 Nasal Cannula 2.0 12/03/16 05:00 80 17 131/73 100 Nasal Cannula 2.0 12/03/16 04:00 97.8 78 13 124/56 100 Nasal Cannula 2.0 12/03/16 04:00 81 12/03/16 03:00 80 15 126/66 100 Nasal Cannula 2.0 12/03/16 02:00 79 13 129/67 100 Nasal Cannula 2.0 12/03/16 01:00 79 14 148/73 100 Nasal Cannula 2.0 12/03/16 00:00 81 12/03/16 00:00 98.3 82 13 143/74 100 Nasal Cannula 2.0 12/02/16 23:00 79 16 108/54 100 Nasal Cannula 2.0 12/02/16 22:00 78 16 156/88 100 Nasal Cannula 2.0 12/02/16 21:00 83 16 149/95 100 Nasal Cannula 2.0 12/02/16 20:00 80 12/02/16 20:00 98.1 80 17 141/64 100 Nasal Cannula 2.0 12/02/16 19:00 81 16 123/100 100 Nasal Cannula 2.0 12/02/16 18:00 79 16 121/57 100 Nasal Cannula 2.0 12/02/16 17:00 80 15 116/63 99 Nasal Cannula 2.0 12/02/16 16:00 81 12/02/16 16:00 98.0 80 17 85/67 100 Nasal Cannula 2.0 12/02/16 15:00 85 15 121/69 100 Nasal Cannula 2.0 12/02/16 14:00 82 15 109/76 100 Nasal Cannula 2.0 12/02/16 13:00 81 13 122/69 100 Nasal Cannula 2.0 12/02/16 12:00 98.9 83 17 124/56 100 Nasal Cannula 2.0 12/02/16 12:00 81 12/02/16 12:00 124/56 Condition: improving Lungs: chest wall tender Heart: HR/BP stable Abdomen: soft, non-tender Extremities: no C/C/E Decubiti: location Objective: neuro awake, moaning does not follow commands. no distress Micro: Microbiology Date/Time Source Procedure Growth Status 12/01/16 00:50 Blood Blood Culture - Preliminary NO GROWTH AFTER 48 HOURS Resulted 12/01/16 00:50 Blood Blood Culture - Preliminary NO GROWTH AFTER 48 HOURS Resulted 12/01/16 19:30 Wound Gram Stain - Final Resulted 12/01/16 19:30 Wound Wound Culture Pending Resulted 12/01/16 05:06 Nasal Nares MRSA Culture - Final NO METHICILLIN RESISTANT STAPH AUREUS... Complete 12/01/16 01:58 Urine,Clean Catch Urine Culture - Preliminary YEAST Resulted 12/01/16 19:30 Foot Left Gram Stain - Final Resulted 12/01/16 19:30 Foot Left Aerobic Culture Pending Resulted 12/01/16 05:06 Rectum VRE Culture - Final Enterococcus Faecium - Vre Complete Accucheck: 77 Blood Sugars: BS controlled Critical Care - Subjective ROS Limited/Unobtainable: Yes Condition: improving EKG Rhythm: Sinus Rhythm FI02: 28 I&O: Intake and Output 12/02/16 12/03/16 19:00 07:00 Intake Total 1870.708 ml 1452.066 ml Output Total 75 ml 70 ml Balance 1795.708 ml 1382.066 ml Intake Oral 0 ml 0 ml IV Total 1870.708 ml 1452.066 ml Output Urine Total 75 ml 70 ml Subjective: more awake, agitated and sundowning noted last night no reports of cp nv or bleeding positive uop no fever vitals stable over night on ivf no pressors at thistime mosit cough per nursing CXR: no new cxr noted 12/02/ Labs: Microbiology Date/Time Source Procedure Growth Status 12/01/16 00:50 Blood Blood Culture - Preliminary NO GROWTH AFTER 48 HOURS Resulted 12/01/16 00:50 Blood Blood Culture - Preliminary NO GROWTH AFTER 48 HOURS Resulted 12/01/16 19:30 Wound Gram Stain - Final Resulted 12/01/16 19:30 Wound Wound Culture Pending Resulted 12/01/16 05:06 Nasal Nares MRSA Culture - Final NO METHICILLIN RESISTANT STAPH AUREUS... Complete 12/01/16 01:58 Urine,Clean Catch Urine Culture - Preliminary YEAST Resulted 12/01/16 19:30 Foot Left Gram Stain - Final Resulted 12/01/16 19:30 Foot Left Aerobic Culture Pending Resulted 12/01/16 05:06 Rectum VRE Culture - Final Enterococcus Faecium - Vre Complete Current Medications Medications (Trade) Dose Ordered Sig/Luis Route PRN Reason Start Time Stop Time Status Last Admin Dose Admin Collagenase (Santyl) 1 applic DAILY TOPIC 12/02/16 09:00 01/01/17 08:59 12/03/16 08:55 Dextrose (Dextrose 50%) STAT PRN IV Hypoglycemia 12/01/16 14:45 12/31/16 14:44 Dextrose/Sodium Chloride (D5ns) 1,000 ml @ 75 mls/hr [id number] IV 12/03/16 11:00 01/02/17 10:59 12/03/16 10:47 Fluconazole (Diflucan) 100 mg DAILY ORAL 12/03/16 09:00 12/10/16 08:59 Haloperidol Lactate 2 mg 2 mg Q4H PRN IM Agitation 12/02/16 19:45 01/01/17 19:44 12/03/16 10:18 Heparin Sodium/ Dextrose 500 ml @ 14.515 mls/ hr adjust per protocol IV 12/03/16 06:03 01/01/17 20:59 12/03/16 06:15 Insulin Aspart (NovoLOG) EVERY 6 HOURS SUBQ 12/01/16 18:00 12/31/16 17:59 12/03/16 00:02 Meropenem/Sodium Chloride (Merrem/Sodium Chloride) 55 ml @ 110 mls/hr Q12HR@0600,1800 IV 12/02/16 18:00 12/07/16 17:59 12/03/16 06:11 Pantoprazole 40 mg 40 mg EVERY 12 HOURS IVP 12/02/16 09:00 01/01/17 08:59 12/03/16 08:56 Vancomycin HCl (Vanco rx to dose) 1 ea DAILY PRN MISC Per rx protocol 12/01/16 14:30 12/31/16 14:29 Vancomycin HCl/ Dextrose (Vancomycin/D5W) 110 ml @ 110 mls/hr Q24H IV 12/02/16 22:00 12/07/16 21:59 12/02/16 21:56 Vitamin A/Vitamin D 1 applic 1 applic EVERY 12 HOURS TOPIC 12/02/16 09:00 01/01/17 08:59 12/03/16 08:55 Laboratory Tests Test 12/02/16 18:30 12/03/16 03:50 Activated Partial Thromboplast Time > 150 SEC (23-33) *H 52 SEC (23-33) H White Blood Count 6.3 K/UL (4.8-10.8) Red Blood Count 3.05 M/UL (4.70-6.10) L Hemoglobin 9.8 G/DL (14.2-18.0) L Hematocrit 31.5 % (42.0-52.0) L Mean Corpuscular Volume 103 FL (80-99) H Mean Corpuscular Hemoglobin 32.0 PG (27.0-31.0) H Mean Corpuscular Hemoglobin Concent 31.0 G/DL (32.0-36.0) L Red Cell Distribution Width 19.6 % (11.6-14.8) H Platelet Count 79 K/UL (150-450) L Mean Platelet Volume 11.7 FL (6.5-10.1) H Neutrophils (%) (Auto) % (45.0-75.0) Lymphocytes (%) (Auto) % (20.0-45.0) Monocytes (%) (Auto) % (1.0-10.0) Eosinophils (%) (Auto) % (0.0-3.0) Basophils (%) (Auto) % (0.0-2.0) Neutrophils % (Manual) Pending Lymphocytes % (Manual) Pending Platelet Estimate Pending Platelet Morphology Pending Sodium Level 142 mEQ/L (135-145) Potassium Level 3.3 mEQ/L (3.4-4.9) L Chloride Level 101 mEQ/L (98-107) Carbon Dioxide Level 24 mEQ/L (20-30) Anion Gap 17 (5-15) H Blood Urea Nitrogen 48 mg/dL (7-23) H Creatinine 3.5 mg/dL (0.7-1.2) H Estimat Glomerular Filtration Rate mL/min (>60) Glucose Level 94 mg/dL (74-106) # Calcium Level 8.3 mg/dL (8.6-10.2) L RANDY ARREOLA DO Dec 03, 2016 11:22
[2016-12-03 11:23] LABS: ANISOCYTOSIS 2+; HYPOCHROMASIA 1+; MACROCYTES 1+
--- NOTE | 2016-12-04 08:38 | Cardiology Report ---
APPROVED REPORT EKG Measurement Heart [id number] Atrial fibrillation Demand ventricular pacemaker Abnormal ECG
--- NOTE | 2016-12-04 14:42 | Diagnostic Imaging Report ---
APPROVED REPORT CPT Code: 46185 Risk Factors History of lower extremity PAD: Left BILATERAL: Common femoral artery waveform analysis is within normal limits at rest. Color flow duplex sonography reveals diffuse calcification throughout the superficial femoral, and popliteal arteries. There is no evidence of stenosis or occlusion within these segments. The tibioperoneal trunks were patent. The posterior tibial, anterior tibial and dorsalis pedis arteries are also diffusily calcified. Doppler tibial artery is compatible with moderate ischemia bilaterally.
--- NOTE | 2016-12-04 22:29 | Progress Note ---
DATE: 12/03/2016 CARDIOLOGY PROGRESS NOTE SUBJECTIVE: The patient remains in the intensive care unit. He is off pressors. Blood pressure remains in the stable range. Plans are ongoing for transfer to contracted facility at this time. OBJECTIVE: GENERAL: Alert and withdrawn. VITAL SIGNS: Blood pressure 97/62 to 131/56, pulse 77, respiratory rate 14, and afebrile. Monitored sinus rhythm with atrial ectopics. LUNGS: Bilateral breath sounds with few rales. HEART: Regular rhythm and rate. Normal S1, paradoxically split S2. A 1/6 systolic apical murmur. ABDOMEN: Soft. EXTREMITIES: With left foot dressing in place. No drainage. Otherwise, trace edema. LABORATORY AND DIAGNOSTIC DATA: White count 6 and hemoglobin 9.8. Potassium 3.3, BUN 48, and creatinine 3.5. IMPRESSION: 1. Recovered shock due to sepsis. 2. Underlying severe cardiomyopathy. 3. Cardiac defibrillator. 4. Acute on chronic renal failure. 5. Hypokalemia. 6. Osteomyelitis of left foot peripheral artery disease. 7. Acute on chronic systolic congestive heart failure. 8. Severe protein-calorie malnutrition. 9. Anemia of chronic kidney disease. PLAN: Off pressors, maintenance IV fluids, titrate anti-failure regimen now that blood pressure parameters have improved, antibiotics wound care, and continue full anticoagulation pending vascular reevaluation of the lower extremities. Jatinder Fu M.D. DR: BETH JOB#: [id number] CC:
--- NOTE | 2016-12-06 14:24 | Discharge Summary ---
Discharge Summary Hospital Course Date of Admission Dec 01, 2016 at 00:03 Date of Discharge Dec 03, 2016 at 15:30 Admitting Diagnosis hypothermia,sepsis,hypotension HPI Carlos Perez is a 75 year old male who was admitted on Dec 01, 2016 at 00: 03 for Altered Mental Status Hospital Course dc summary dictated # [id number] Discharge Condition Upon Discharge: critical Discharge Disposition Patient was discharged to Acute Care Facility(02)- [facility] Discharge Diagnoses: Discharge Instructions Discharge Instructions Special Instructions I have been assigned to complete a D/C Summary on this account. I was not involved in the patient management Viktoria Woodson NP ([place]) Dec 06, 2016 14:24
--- NOTE | 2016-12-07 02:48 | Discharge Summary 2 SIG ---
DATE OF ADMISSION: 12/01/2016 DATE OF DISCHARGE: 12/03/2016 REASON FOR ADMISSION: 75-year-old male, presented to the emergency room from the [facility] facility with altered level of consciousness. The patient had underlying past medical history of cardiomyopathy, CHF, recent left foot gangrene, status post amputation of transmetatarsal, chronic kidney disease stage III, dementia and anemia. Vital signs were significant for rectal temperature of 90, however, the patient was not cold to touch. The patient was disoriented. No signs of trauma. Unable to provide any history. CT of the head revealed no acute intracranial pathology, but consistent with chronic age-related changes. EKG revealed atrial pacing with ventricular sensing rhythm. Airway was adequately maintained. Heart rate was 82. Laboratory work revealed elevated lactate. No leukocytosis. Stable hemoglobin and hematocrit. Elevated serum creatinine with known history of chronic kidney disease. Blood cultures were drawn. The patient had PICC line. The external jugular access was placed. The patient was started on broad-spectrum antibiotics. The emergency room doctor spoke with Dr. Rainey at [facility] who did not feel that the patient was stable for transfer. The patient was hypotensive and started on gentle intravenous fluids for volume support, however with caution due to history of severe cardiomyopathy. The patient was admitted to intensive care unit for further management. ADMITTING DIAGNOSES: 1. Sepsis with septic shock and hypothermia. 2. Osteomyelitis left foot (likely etiology of sepsis). 3. Acute on chronic encephalopathy. 4. Congestive heart failure. 5. Acute on chronic systolic and diastolic. 6. History of left subclavian, axillary, and basilic vein thrombosis. 7. 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 8. Peripheral arterial disease status post chondroplasty. 9. Status post automatic implantable cardioverter-defibrillator. 10. Chronic kidney disease stage IV. 11. Anemia. 12. Thrombocytopenia. 13. History of cardiac thrombosis, resolved. 14. 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 15. History of B12 deficiency. 16. Hyperuricemia. HOSPITAL STAY: The patient was pancultured. The patient was admitted to intensive care unit. The patient was started on gentle intravenous fluids and pressors such as Levophed. The patient was started on broad-spectrum antibiotics. ID, ground crew linesman and cardio followed the patient as well as the drop forger helper. Blood pressure and heart rate were closely monitored. On 12/02/2016, patient was able to be weaned from the Levophed. Echocardiogram repeated, which revealed ejection fraction of less than 20%, right ventricular systolic pressure of 15 as well as evidence of moderate tricuspid regurgitation, and moderate mitral regurgitation. CT of the head done in the emergency room was negative for any acute intracranial pathology. Chest x-ray was negative for any acute cardiopulmonary disease. Foot x-ray revealed no evidence of acute osteomyelitis. ID doctor closely followed the patient. Antibiotics were continued. Blood cultures were negative. Wound culture was positive for Enterobacter, Citrobacter, Klebsiella and Proteus. Education Technician seen the patient and recommended wound care. He also recommended revision of transmetatarsal amputation stump as well as to consider possible below knee amputation. Arterial duplex of bilateral lower extremities was done, which revealed moderate ischemia bilateral tibial artery. Middleware Consultant followed. Again, patient was able to be weaned from pressors. Middleware Consultant recommended cautious hydration due to severe cardiomyopathy and cautious anticoagulation. Per Cardiology, the patient was at high risk for bacterial endocarditis due to the history of mitral valve replacement. He recommended to consider ADRYAN versus empiric treatment for endocarditis if blood culture return positive, however, blood cultures came back negative. Prior to transfer, blood pressure stable . Medical management for heart failure was optimized by the tractor trailer technician. Education Manager followed the patient. Renal parameters were worsening. Creatinine is up to 3.5 from initial of 2.8. Acute renal failure likely secondary to septic shock as per ground crew linesman. Hemoglobin and hematocrit trending down. The patient noted to have microcytic anemia. The patient with a known history of B12 deficiency. B12 level was stable. When the patient was off the pressor, call was made to [facility] and the patient was accepted for transfer. On 12/03/2016, the patient was transferred via [facility] ambulance to [facility] for further management. DISCHARGE DIAGNOSES: 1. Status post septic shock 2. Hypothermia. 2. Sepsis, likely secondary to osteomyelitis. 3. Osteomyelitis of the left foot. 4. Acute on chronic encephalopathy. 5. Acute on chronic congestive heart failure, systolic and diastolic. 6. 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 7. History of cardiac thrombosis, resolved. 8. Osteomyelitis and gangrene of the left foot, status post transmetatarsal amputation in 11/13/2016. 9. Peripheral arterial disease, status post chondroplasty. 10. Severe cardiomyopathy. 11. Status post automatic implantable cardioverter-defibrillator. 12. Chronic kidney disease stage IV. 13. Acute on chronic renal failure. 14. Anemia. 15. Thrombocytopenia. 16. Diabetes with diabetic kidney disease and diabetic angioplasty. 17. History of B12 deficiency, currently stable. DISCHARGE MEDICATIONS: See medication reconciliation. DISCHARGE INSTRUCTIONS: The patient was discharged to [facility] for further followup. Overall, prognosis poor. Nathaniel Medellin M.D. I have been assigned to dictate discharge summary on this account and I was not involved in the patient's management. [facility] System[facility] NNikiPNiki DR: JENIFER JOB#: [id number] CC: [email or web address]
--- NOTE | 2016-12-07 07:50 | Cardiology Report ---
APPROVED REPORT EXAM: Two-dimensional and M-mode echocardiogram with Doppler and color Doppler. INDICATION Thrombosis M-Mode DIMENSIONS IVSd0.6 (0.7-1.1cm)Left Atrium (MM)5.4 (1.6-4.0cm) LVDd6.7 (3.5-5.6cm)Aortic Root3.4 (2.0-3.7cm) PWd0.8 (0.7-1.1cm)Aortic Cusp Exc.2.0 (1.5-2.0cm) LVDs6.4 (2.5-4.0cm) PWs0.8 cm Moderate left ventricular enlargement by 2D. Global left ventricular hypokinesis. Worse in mid anterior septum dyskinesis. No evidence of left ventricular hypertrophy. No evidence of pericardial fat or effusion. Moderate left atrial enlargement by 2D. Mild right atrial enlargement by 2D. Focal aortic valve sclerosis with adequate cusp excursion Moderatly thickened mitral valve leaflets with normal excursion. Mitral annulus and aortic root calcification. Pulmonic valve is well visualized. Normal tricuspid valve structure. IVC dilated at 2.8cm with no physiologic collapse. RA pressure of 20mmHg. Probable pacemaker wire present in the right side chambers. No evidence of a thrombis. A color flow and spectral Doppler study was performed and revealed: Mild aortic regurgitation. Moderate mitral regurgitation. Left ventricular diastolic dysfunction not obtainable due to A-FIB. Moderate tricuspid regurgitation. Tricuspid systolic velocities suggests peak right ventricular systolic pressure of 50 mmHg Consistent with moderate pulmonary hypertension. Pulmonic regurgitation present.
== END 2016-12-03 15:30 | disposition short-term general hospital (02) | DRG 871 ==
LOC: EDUNIT# 22:55 → EDBD 22:55 → EDBEDREQ 23:05 → EMR 23:30 → 2E 12-01 00:03 → EDBEDREQ 12-01 01:49 → ICU 12-01 10:34
DX: A41.9 Sepsis, unspecified organism (principal); E43 Unspecified severe protein-calorie malnutrition; G93.40 Encephalopathy, unspecified; I50.43 Acute on chronic combined systolic (congestive) and diastolic (congestive) heart failure; L89.154 Pressure ulcer of sacral region, stage 4; R65.21 Severe sepsis with septic shock; R57.0 Cardiogenic shock; N18.4 Chronic kidney disease, stage 4 (severe); N17.9 Acute kidney failure, unspecified; I96 Gangrene, not elsewhere classified; I82.B12 Acute embolism and thrombosis of left subclavian vein; M86.8X7 Other osteomyelitis, ankle and foot; I82.612 Acute embolism and thrombosis of superficial veins of left upper extremity; N18.9 Chronic kidney disease, unspecified; I25.5 Ischemic cardiomyopathy; Z95.810 Presence of automatic (implantable) cardiac defibrillator; R68.0 Hypothermia, not associated with low environmental temperature; I25.10 Atherosclerotic heart disease of native coronary artery without angina pectoris; D69.6 Thrombocytopenia, unspecified; E11.21 Type 2 diabetes mellitus with diabetic nephropathy; E11.51 Type 2 diabetes mellitus with diabetic peripheral angiopathy without gangrene; E53.8 Deficiency of other specified B group vitamins; Z89.432 Acquired absence of left foot; Z88.6 Allergy status to analgesic agent; Z88.8 Allergy status to other drugs, medicaments and biological substances; Z86.73 Personal history of transient ischemic attack (TIA), and cerebral infarction without residual deficits; Z79.4 Long term (current) use of insulin; Z79.02 Long term (current) use of antithrombotics/antiplatelets; Z86.718 Personal history of other venous thrombosis and embolism; L89.619 Pressure ulcer of right heel, unspecified stage; D63.1 Anemia in chronic kidney disease; I08.1 Rheumatic disorders of both mitral and tricuspid valves; B96.89 Other specified bacterial agents as the cause of diseases classified elsewhere; B96.1 Klebsiella pneumoniae [K. pneumoniae] as the cause of diseases classified elsewhere; B96.4 Proteus (mirabilis) (morganii) as the cause of diseases classified elsewhere
CPT/HCPCS: 36415; 70450; 71010; 80048; 80053; 80061; 81003; 82550; 82553; 82570; 82607; 82962; 83036; 83605; 83935; 84153; 84300; 84484; 84550; 85007; 85025; 85730; 87040; 87070; 87075; 87081; 87086; 87181; 87205; 93005; 93306; 93925; 94760; J1815; J2310